=== PATIENT | female | born 1950 | race Caucasian/White ===

== ENCOUNTER 2025-04-22 09:40 | Emergency (ER) | payer MEDICARE, SELFPAY ==
[2025-04-22 09:54] VITALS: BP 132/56; PULSE 84; RESP 20; TEMP 36.9; O2SAT 97
--- OUTSIDE RECORDS SUMMARY | 2025-04-22 10:24 | XMS_ITS | Clinical Summary ---
Author Organization [facility] Address [id number] [place] [address] Care Team Providers Care Sole Cementer Name Role Phone Vanessa Mcclain RN Unavailable Unavailabl Jigar Mcgrath PT Unavailable Unavailab Jw Garay MD Unavailable Kristofer Fairbanks MD Unavailable [phone] Ammy Trejo MD Primary Care Provide r Allergies Active Allergy Reactions Criticality Noted Date Comments Etodolac Dizziness Low Sulfa (Sulfonamide Antibiotics) Unknown Sulfanilamide Medications aspirin (ECOTRIN LOW STRENGTH) 81 mg tablet take 1 tablet by oral route every day 30 5 6 Active sosbssrx-lcf-U H-eagmlyw-upxm in (CENTRUM SILVER) 0.4-300-250 mg-mcg-mcg tablet one po daily. 0 0 6 Active ascorbic acid, vitamin C, 250 mg tablet,chewabl eIndications:V itamin C Deficiency Take 1 tablet by mouth 2 (two) times a day Active gabapentin (NEURONTIN) 300 mg capsule Take 1 capsule (300 mg total) by mouth 3 (three) times a day 270 capsule 3 3 Active furosemide (LASIX) 40 mg tablet Take 1 tablet (40 mg total) by mouth daily as needed (swelling) 90 tablet 1 3 Active albuterol HFA (PROVENTIL HFA,VENTOLIN HFA,PROAIR HFA) 90 mcg/actuation inhaler Inhale 2 puffs every 6 (six) hours as needed for wheezing 1 each 4 Active fluticasone propion-salmet Marcus (ADVAIR DISKUS) 500-50 mcg/dose diskus inhaler Inhale 1 puff 2 (two) times a day Rinse mouth with water after use. Do not swallow. 1 each 4 Active potassium chloride ER 10 mEq CR tablet Take 1 tablet by mouth once daily with food 100 tablet 4 Active losartan (COZAAR) 100 mg tablet Take 1 tablet by mouth once daily 90 tablet 3 4 Active rosuvastatin (CRESTOR) 10 mg tablet TAKE 1 TABLET BY MOUTH ONCE DAILY AT NIGHT 90 tablet 3 4 Active amLODIPine (NORVASC) 5 mg tablet Take 1 tablet by mouth once daily 90 tablet 1 4 Active blood glucose diagnostic (Mobentouch Ultra Test) stripIndicatio ns:Uncontrolle d type 2 diabetes mellitus with hyperglycemia, with long-term current use of insulin (HCC) USE STRIP TO CHECK GLUCOSE three TIMES DAILY. E11.65 300 each 3 5 Active pen needle, diabetic 32 gauge x 5/32 needle Use to inject insulin up to 4times/day.e11.65 400 each 11 5 Active insulin lispro (HumaLOG, ADMELOG) 100 unit/mL pen for injectionIndic ations:type 2 diabetes mellitus 71 - 150 NO CORRECTIONAL INSULIN NEEDED, 151 - 170=2 UNITS, 171 - 185=3 UNITS, 186 - 200=4 UNITS, 201 - 215=5 UNITS, 216 - 230=6 UNITS, 231 - 245=7 UNITS, 246 - 260=8 UNITS, 261 - 275=9 UNITS, 276 - 290=10 UNITS, 291 - 300=11 UNITS, 300-315=12 UNITS, 316-331=13 units, 331-346=14 units. Greater than 346= 15 units. E11.65 Total daily dose- 45 units. 45 mL [address] (VOLTAREN) 75 mg EC tablet Take 1 tablet by mouth twice daily as needed for pain 180 tablet 5 Active levothyroxine (SYNTHROID) 125 mcg tablet TAKE ONE TABLET BY MOUTH BAR ASSISTANT BEFORE BREAKFAST 6 DAYS A WEEK. HOLD LEVOTHYROXINE ON TUESDAY. 90 tablet 3 5 Active zolpidem (AMBIEN) 5 mg tablet TAKE 1 TABLET BY MOUTH NIGHTLY NEEDED FOR SLEEP 30 tablet 5 Active Active Problems Problem Noted Date Diagnosed Date Memory change 03/22/2024 Assessment & Plan (03/22/2024 2:59 PM CDT): New concern SLUMS showed mild cognitive decline Will refer to neurology Abnormal stress test 01/16/2024 STAPLES (dyspnea on exertion) 01/16/2024 Cataract 11/30/2023 Assessment & Plan (11/30/2023 12:36 PM CDT): Going for cataract surgery Sore throat 11/14/2023 Assessment & Plan (11/14/2023 2:03 PM CDT): New concern Not at goal Covid flu and rsv negative Recommend fluids, rest, humidification if needed. She was instructed to call back if symptoms do not improved in a week, or if worsening ones arise. Education provided. F/u in 2 weeks Pre-operative clearance 11/14/2023 Assessment & Plan (11/30/2023 12:35 PM CDT): She understands that no procedure is risk-free but accepts those as discussed during OV and wishes to proceed. She was instructed to contact us if any new symptoms or problems arise between now and surgery date. According to the RCRI, the patient's number of risk factors stratifies patient to class II, which carries a 6% risk of major cardiovascular complications Labs and chest xray reviewed She is medically optimized for surgery as long as she is cleared by cardiology Assessment & Plan (11/14/2023 1:46 PM CDT): She understands that no procedure is risk-free but accepts those as discussed during OV and wishes to proceed. She was instructed to contact us if any new symptoms or problems arise between now and surgery date. 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 Washington- [facility]-patient has seen in the past Continue to monitor Encouraged to practice good sanitary hygiene-wiping front to back at all time, using a janine rinse bottle with warm water after each urination and pat dry, avoid rubbing with the tissue paper, encouraged to use a long-handled sponge or loofah to wash the perineum to help ensure for clean hygiene Stay hydrated-drink plenty of water and fluids like lemonade, cranberry juice or cranberry capsules [id number] to help flush the kidneys and bladder Follow-up as-scheduled with PCP- sooner p.r.n. if no Abscess, suprapubic 09/14/2023 Assessment & Plan (09/14/2023 12:52 PM MANAGER IN[employer]ANKING): Acute problem-this is a new problem this visit Abscess with edges approximated, negative for drainage measuring 1 cm in diameter with erythema to the circumference Encouraged to wash area good with soap and water, rinse well, pat dry Avoid squeezing on the area Warm compress 3 to 4 times a day to the area, if the area opened up and starts draining recommend allowing it to drain out just place a loose dressing over it to void image to clothing Ordered Augmentin 875-125 mg -take 1 tablet b.i.d. x7 days, encouraged to make sure she finishes all antibiotics Ordered referral to general surgeon Dr. Jacobson Continue to monitor Ddx: carbuncle , folliculitis Non-rheumatic aortic stenosis 06/17/2023 Coronary artery disease invo lving [place] coronary artery of [place] heart without angina pectoris 03/04/2023 Assessment & Plan (08/03/2023 7:00 AM MANAGER IN[employer]ANKING): Stable Continue bp control Continue statin asa and following with cardiology Murmur, cardiac 01/04/2023 Assessment & Plan (01/04/2023 10:10 AM CDT): Will refer back to cardiology. Last echo 2015. Has seen Dr. Degroot in the past. Dementia, in, senility, without behavioral distu rbance 12/25/2020 Assessment & Plan (07/18/2023 8:13 AM MANAGER IN[employer]ANKING): Concerned about memory. She is at borderline with slums score. Does not want to take medication at this time. Discussed risks/benefits of medication. Assessment & Plan (12/25/2020 3:12 PM CDT): Discussed results of slums exam. Discussed medications. Stressed that it may not improve memory but can help slow down progression of loss. Will start Aricept and Namenda. I also discussed that we had started nortriptyline for difficulty sleeping. She is doing well with this and getting 4-5 hours of sleep and this is an improvement for her. However since she is starting to new medications with doses at bedtime I told her to pullback from the nortriptyline for while and see how she does with sleep on just the new medications. Patient voiced understanding. She really has follow-up scheduled in February and will check in with her at that time. She may call in the interim if any problems or concerns Adjustment insomnia 02/04/2020 Assessment & Plan (07/09/2022 9:27 AM CDT): Stable. Currently on ambien 5mg at bedtime. Assessment & Plan (02/04/2020 7:38 AM CDT): Will discontinue lorazepam. Discussed importance of discontinuing lorazepam. Will try temazepam at bedtime. F/u 1 month Nevus of multiple sites 05/15/2019 Eczematous dermatitis of left lower eyelid 05/15 Assessment & Plan (07/13/2023 2:18 PM MANAGER [employer]ANKING): Has been chronic. Recommended going to see Dermatology in [place]. No decision was made between her and her daughter at this time. They can call for referral at any time Assessment & Plan (12/13/2019 9:03 AM CDT): I had given her poly/dex ointment but I explained I didn't want her to continue using the ointment with a steroid in it under her eye indefinitely. Will try switching to neomycin/polymixin ointment. She can continue the otc lotion as suggested by dermatology as well. She has f/u scheduled in March Assessment & Plan (05/15/2019 3:48 PM CDT): I told her she could use some gvui-qqj-jiugfxk 1% hydrocortisone lotion commonly known as cortisone 10 to under her eye once daily for up to 2 weeks. Cautioned not to use for over 2 weeks and not heavily to do thinness of skin. And patient voiced understanding. Alternatively I gave her poly dex eye ointment that she could use little closer right underneath of her eyelid for 2 weeks as well. She can continue to use the [id number]-pqm-yvtrquf aquaphor. Vitamin D deficiency 02/05/2019 Assessment & Plan (07/07/2022 4:22 PM CDT): Improved. Continue to take vitamin D Assessment & Plan (11/19/2021 7:31 PM CDT): History of vitamin-D deficiency will recheck vitamin-D Primary osteoarthritis of right hip 12/12/2018 Physical deconditioning 12/04/2018 Class 3 severe obesity due t o excess calories with serious comorbidity and body mass index (BMI) of 40.0 to 44.9 in adult 12/01/2018 Assessment & Plan (12/22/2023 4:39 PM CDT): This is a chronic condition which continues Five lbs. Weight gain since last office visit Encouraged healthy eating which includes a low carb diet. Avoiding processed foods, sweets and fried foods. Encouraged 30 minutes of walking at least 5 days per week Assessment & Plan (09/21/2023 1:48 PM MANAGER [employer]ING): This is a chronic problem that persist 3 lb weight gain since last office visit States she has not getting out as much since the weather is cold She does walk after she eats lunch in her living facility Encouraged walking after each meal to increase activity Assessment & Plan (07/18/2023 8:10 AM MANAGER [employer]ANKING): BMI Follow-up includes: nutrition counseling. Assessment & Plan (01/04/2023 10:23 AM CDT): BMI Follow-up includes: exercise counseling. Assessment & Plan (07/09/2022 9:03 AM CDT): BMI Follow-up includes: exercise counseling. Assessment & Plan (07/02/2021 3:39 PM CDT): BMI Follow-up includes: nutrition counseling and exercise counseling. Assessment & Plan (11/26/2020 2:46 PM CDT): BMI Follow-up includes: exercise counseling. Assessment & Plan (11/06/2019 2:23 PM MANAGER [employer]ANKING): Unchanged. Encouraged patient to decrease weight, increase daily exercise, and modify diet. Assessment & Plan (02/08/2019 1:51 PM CDT): BMI Follow-up includes: nutrition counseling. DDD (degenerative disc disease), lumbar 05/24/20 Assessment & Plan (07/18/2023 8:12 AM MANAGER [employer]ANKING): Continues on gabapentin 300mg tid for back pain. Condition is stable at this time. Also has nsaid, diclofenac bid prn for pain. Spinal stenosis of lumbar re gion with neurogenic claudication L2-3 level 05/24/2018 History of diverticulitis 04/21/2018 Assessment & Plan (04/21/2018 6:11 PM CDT): Resolved with treatment. She continues to have fatigue. We will recheck labs. However I told her that it she may just be taking time to heal and recover from illness. I think she is also getting a a cold which could also be wearing her down. Encouraged rest and fluids this week. Low back pain radiating to right leg-L5/S1 distr ibution 12/14/2017 Assessment & Plan (08/03/2023 7:03 AM MANAGER [employer]ING): I explained that I do not prescribe narcotics which includes tramadol. She will need to get in with pain management or find a new provider who does prescribe narcotics. She verbalized understanding. She was given Dr. Parrish's name, Dr. Chopra or pain management. Assessment & Plan (11/09/2022 2:14 PM MANAGER [employer]ANKING): Pt asked if I could prescribe something stronger than tramadol. I do not feel comfortable prescribing anything stronger on a regular basis and do not manage chronic pain. Referral given to pain management. Assessment & Plan (11/19/2021 7:29 PM CDT): Saw pain management in the past. At one time accidentally overdosed on pain medication. Currently on gabapentin. She is interested in physical therapy. Will refer to PT . Pt still drives. She can drive to [facility] in [place]. Assessment & Plan (11/26/2020 2:48 PM CDT): Has seen pain management in the past but does not want another injection. Takes diclofenac b.i.d.. Complaining of low back pain sometimes radiates down into right leg. Will refer her back to pain management. Previous pain management doctor retired so will refer her to Dr. Cobos Assessment & Plan (02/14/2018 11:25 AM CDT): toradol 60mg IM given in office. Restart diclofenac 50mg tid prn, to start this evening. zanaflex 4mg tid prn. Discussed use and it may make her tired. May use mostly at bedtime. Tramadol for acute pain. She had an x-ray ordered previously. She will obtain lumbar spine films now and then f/u pending results. Consider MRI or pain management. Assessment & Plan (12/14/2017 2:29 PM CDT): She had an x-ray in 2013. It did show DDD. We discussed exercise and movement during the day. We discussed sitting positions. I asked her to go to physical therapy. She reluctantly agreed. Referred to physical therapy in [place], which is closer to her. We will get repeat x-ray. Consider MRI. Post-menopausal atrophic vaginitis 12/14/2017 Assessment & Plan (12/14/2017 3:19 PM CDT): Urine dip was negative. She's having burning at end of urination. I am going to try treating her for a post menopausal atrophic vaginitis. She actually has a f/u with gynecology scheduled in the next month, which will be a good recheck Encounter for wellness examination 06/27/2017 Assessment & Plan (08/03/2023 9:54 AM MANAGER [employer]ANKING): Ordered CBC, cmp, lipid Colonoscopy up to date Mammo scheduled Zoster-states that she had it F/u in 1 year for annual Assessment & Plan (07/13/2023 10:59 AM MANAGER [employer]ANKING): -Recommended: Healthy, prudent diet. Avoiding junk food/fast food. -30 minutes of exercise most days of the week. Increase to 45 minutes for weight loss. -Mammogram every 1 year, starting at age 40; regular self breast & skin examinations (1 week after cycle begins) -Regular gynecologic examinations with pelvic exam & PAP smear every 3-5 years if you have not had a hysterectomy (does not have a airplane pilot supervisor), -Periodic blood pressure monitoring, & bone-density testing (starting at age 65 in average-risk person) -Colonoscopy at age 45 and further colonoscopys pending GI recs. , alternative cologuard Up to date -Influenza vaccine every year up to date and documented Up to date, see immunization history -F/u in 1 year for Annual PE or sooner if needed -Labs as ordered Assessment & Plan (07/09/2022 9:29 AM CDT): Patient Counseling: --Nutrition: Stressed importance of moderation in sodium/caffeine intake, saturated fat and cholesterol, caloric balance, sufficient intake of fresh fruits, vegetables, --Exercise: Stressed the importance of regular exercise. --Continue routine dental and vision visits --Immunizations reviewed and offered --Discussed benefits of screening colonoscopy.- starting at age 45-50-utd --females- mammograms offered if applicable/ needed., -utd -Routine labs/ screenings ordered Assessment & Plan (07/02/2021 3:41 PM CDT): -Recommended: Healthy diet. Avoiding junk food/fast food. -30 minutes of exercise most days of the week. Increase to 45 minutes for weight loss. Immunizations: Up to date Recommend zoster lose weight, follow low fat diet, have labs drawn prior to ROV, call if any problems Follow-up in 6 months. 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 Lab Results Component Value Date TSH 1.01 01/06/2023 TSH 5.63 (H) 10/26/2022 TSH 6.22 (H) 08/16/2022 Continue Levothryoxine 125 mcg po daily in am Discussed the importance of taking Levothryoxine on a empty stomach, which means one hour before eating or two hours after eating. Discussed food in the stomach will interfere with absorption of Levothyroxine. Discussed Calcium, antacids and iron supplements will interfere with the absorption of Levothyroxine, encouraged to take these at a different time of the day. Assessment & Plan (09/21/2023 1:46 PM MANAGER [employer]ANKING): This is a chronic condition which is at goal of TSH between 0.3 to 4.2 mclUnits/ml Personally reviewed lab. Lab Results Component Value Date TSH 1.01/06/2023 TSH 5.63 (H) 10/26/2022 TSH 6.22 (H) 08/16/2022 Continue Euthyrox 125 mcg po daily in am Discussed the importance of taking Euthryox on a empty stomach, which means one hour before eating or two hours after eating. Discussed food in the stomach will interfere with absorption of Levothyroxine. Discussed Calcium, antacids and iron supplements will interfere with the absorption of Levothyroxine, encouraged to take these at a different time of the day. Assessment & Plan (08/03/2023 7:01 AM MANAGER [employer]ANKING): Lab Results Component Value Date TSH 1.01/06/2023 Continue following with endo for management Assessment & Plan (06/16/2023 12:48 PM CDT): This is a chronic condition which is not at goal of TSH between 0.3 to 4.2 mclUnits/ml Personally reviewed lab. Lab Results Component Value Date TSH 1.01 01/06/2023 TSH 5.63 (H) 10/26/2022 TSH 6.22 (H) 08/16/2022 Continue Levothryoxine 125 mcg po daily in am Discussed the importance of taking Levothryoxine on a empty stomach, which means one hour before eating or two hours after eating. Discussed food in the stomach will interfere with absorption of Levothyroxine. Discussed Calcium, antacids and iron supplements will interfere with the absorption of Levothyroxine, encouraged to take these at a different time of the day. Assessment & Plan (03/16/2023 2:41 PM CDT): This is a chronic condition which is at goal of TSH between 0.3 to 4.2 mclUnits/ml Personally reviewed lab. Lab Results Component Value Date TSH 1.01 01/06/2023 TSH 5.63 (H) 10/26/2022 TSH 6.22 (H) 08/16/2022 Continue Euthyrox 125 mcg po daily in am Discussed the importance of taking Levothryoxine on a empty stomach, which means one hour before eating or two hours after eating. Discussed food in the stomach will interfere with absorption of Levothyroxine. Discussed Calcium, antacids and iron supplements will interfere with the absorption of Levothyroxine, encouraged to take these at a different time of the day. Assessment & Plan (01/04/2023 10:21 AM CDT): Check TSH today. Continue current medication. . Please take levothyroxine on an empty stomach. This means 1 hour before eating or 2 hours after eating. Food in the stomach will interfere with absorption of the levothyroxine. Calcium, antacids and iron supplements will also interfere with the absorption of levothyroxine. Please take these at a different time of the day Managed by Kim Maxwell. She is due for labs. Order given for [facility] Assessment & Plan (11/03/2022 11:08 AM MANAGER [employer]ANKING): This is a chronic condition which is not at goal. Personally reviewed lab. Lab Results Component Value Date TSH 5.63 (H) 10/26/2022 TSH 6.22 (H) 08/16/2022 TSH 0.29 (L) 04/19/2022 Goal is for TSH to be between 0.3 to 4.2 mclUnits/ml increase Levothryoxine 125 mcg po daily in am- skip the Tuesday dose. Discussed the importance of taking Levothryoxine on a empty stomach, which means one hour before eating or two hours after eating. Discussed food in the stomach will interfere with absorption of Levothyroxine. Discussed Calcium, antacids and iron supplements will interfere with the absorption of Levothyroxine, encouraged to take these at a different time of the day. Repeat TSH, T4 in 8 weeks. Assessment & Plan (08/03/2022 2:33 PM MANAGER [employer]ANKING): This is a chronic condition which is not at goal. Personally reviewed lab. Lab Results Component Value Date TSH 0.29 (L) 04/19/2022 TSH 0.13 (L) 12/30/2021 TSH 0.06 (L) 07/13/2021 Goal is for TSH to be between 0.3 to 4.2 mclUnits/ml decrease Levothryoxine 100 mcg po daily in am Discussed the importance of taking Levothryoxine on a empty stomach, which means one hour before eating or two hours after eating. Discussed food in the stomach will interfere with absorption of Levothyroxine. Discussed Calcium, antacids and iron supplements will interfere with the absorption of Levothyroxine, encouraged to take these at a different time of the day. Repeat TSH, T4 Assessment & Plan (07/09/2022 9:03 AM CDT): Stable. Managed by endocrinology. Assessment & Plan (04/28/2022 1:11 PM CDT): This is a chronic condition which is not at goal. Personally reviewed lab. Lab Results Component Value Date TSH 0.29 (L) 04/19/2022 TSH 0.13 (L) 12/30/2021 TSH 0.06 (L) 07/13/2021 Goal is for TSH to be between 0.3 to 4.2 mclUnits/ml decrease Levothryoxine 100 mcg po daily in am Discussed the importance of taking Levothryoxine on a empty stomach, which means one hour before eating or two hours after eating. Discussed food in the stomach will interfere with absorption of Levothyroxine. Discussed Calcium, antacids and iron supplements will interfere with the absorption of Levothyroxine, encouraged to take these at a different time of the day. Repeat TSH, T4 in 6 weeks, Assessment & Plan (11/19/2021 7:31 PM CDT): Check TSH today. Continue current medication. Assessment & Plan (07/02/2021 3:39 PM CDT): Due for repeat TSH. Order given Assessment & Plan (04/26/2021 6:14 PM CDT): Check TSH today. Continue current medication. Assessment & Plan (12/25/2020 3:09 PM CDT): Lab orders for [facility] Assessment & Plan (11/26/2020 2:43 PM CDT): Check TSH today. Continue current medication. Assessment & Plan (09/11/2019 2:05 PM MANAGER [employer]ANKING): Check TSH today. Continue current medication. Assessment & Plan (05/15/2019 3:44 PM CDT): TSH in February was normal. However due to knee symptoms will recheck her TSH. Assessment & Plan (02/08/2019 1:50 PM CDT): Continue current medications. Order for repeat labs. Assessment & Plan (10/24/2018 1:31 PM MANAGER IN[employer]MENT [employer]ANKING): We decreased her levothyroxine last April. She is overdue for repeat TSH. Orders are in [place]. She will get those drawn today through [facility]. Assessment & Plan (04/21/2018 6:14 PM CDT): Due for repeat TSH. Assessment & Plan (12/14/2017 2:21 PM CDT): Due to recheck TSH today. Continue current medication. Will call with results. Assessment & Plan (06/29/2017 9:55 PM CDT): Continue current medictions. Due for lab work. Type 2 diabetes mellitus wit h hyperglycemia, with long-term current use of insulin 01/19/2014 Overview (12/11/2016): DMII WO CMP UNCNTRLD Assessment & Plan (03/22/2024 8:30 AM CDT): Hga1c goal less than 8%. Managed by endocrinology. Condition is stable. Assessment & Plan (12/22/2023 4:37 PM CDT): This is a chronic condition which is at goal . Goal is less than 7-8%. Personally reviewed most recent A1c - Lab Results Component Value Date HGBA1C 8.0 12/22/2023 Personally reviewed POC blood sugar- not at goal of 80-180 Lab Results Component Value Date POCGLU 306 12/22/2023 Medication -continue Novolog 5-15 units 15 minutes prior to meals and at bedtime. Monitor blood sugar 5 times a day. Encouraged annual eye exam. She has needing a cataract removal Monofilament foot exam completed. Loss of protective senses Treated with Gabapentin Personally reviewed CMP eGFR- 69 Kidney function-normal Urine microalbumin/creatinine ratio - at goal. Goal is <30 Continue amlodipine, Lasix, losartan Assessment & Plan (09/21/2023 1:47 PM MANAGER [employer]ING): This is a chronic condition which is at goal of less than 8%. Personally reviewed most recent A1c - Lab Results Component Value Date HGBA1C 7.6 09/21/2023 Personally reviewed POC blood sugar- not at goal 80-180 Lab Results Component Value Date POCGLU 250 09/21/2023 Medication- continue Novolog 5-15 units 15 minutes prior to meals and at bedtime. Monitor blood sugar 3-4 times a day. Encouraged annual eye exam. Monofilament foot exam completed. loss of protective senses. Treated with Gabapentin Personally reviewed CMP eGFR- 91 Kidney function- normal B/P today- at goal of <140/90. continue amlodipine, losartan, furosemide Personally reviewed lipid panel. at Goal of less than 70. Continue rosuvastatin Assessment & Plan (08/03/2023 7:01 AM MANAGER [employer]ING): Hga1c at goal less than 8%. Managed by endocrinology. Condition is stable. Assessment & Plan (07/18/2023 8:10 AM MANAGER [employer]ING): Hga1c at goal less than 8%. Managed by endocrinology. Condition is stable. Assessment & Plan (06/16/2023 12:47 PM CDT): This is a chronic condition which is at goal of less than 8%. Personally reviewed most recent A1c - Lab Results Component Value Date HGBA1C 7.4 06/16/2023 Personally reviewed POC blood sugar- not at goal 80-180 Lab Results Component Value Date POCGLU 222 06/16/2023 Medication- Continue Novolog 5-15 units 15 minutes prior to meals and at bedtime. Discussed trying Ozempic but she is not interested in changing her regimen at this time. Since she is close to goal we will honor her wishes Monitor blood sugar 4-5 times a day. Encouraged annual eye exam. monofilament foot exam completed. loss of protective senses. Personally reviewed CMP eGFR- 91 Kidney function- normal Urine microalbumin/creatinine ratio - at goal <30 treated with losartan, amlodipine B/P today- at goal of <140/90. continue losartan, amlodipine Personally reviewed lipid panel. at Goal of less than 70. Continue rosuvastatin Assessment & Plan (03/16/2023 2:40 PM CDT): This is a chronic condition which is inadequately controlled, not at goal of less than 8%. Personally reviewed most recent A1c - Lab Results Component Value Date HGBA1C 8.3 03/16/2023 Personally reviewed POC blood sugar- not at goal 80-180 Lab Results Component Value Date POCGLU 207 03/16/2023 Medication- continue Novolog 5-15 units 15 minutes prior to meals and at bedtime. Monitor blood sugar 3 times a day. Encouraged annual eye exam. Monofilament foot exam completed. loss of protective senses. Treated with Gabapentin Personally reviewed CMP eGFR- 68 Kidney function- abnormal Urine microalbumin/creatinine ratio - at goal <30 treated with amlodipine, furosemide, losartan B/P today- at goal of <140/90. continue amlodipine, furosemide, losartanACE/ARB Personally reviewed lipid panel. at Goal of less than 70. Continue rosuvastatin Assessment & Plan (01/04/2023 10:26 AM CDT): Worsening. Hemoglobin A1c is not at goal. Managed by endocrinology. Remains on short-acting insulin prior to meals. Refuses long-acting insulin as she is afraid of hypoglycemia. Can not exercise much due to physical disability Assessment & Plan (11/03/2022 11:07 AM MANAGER [employer]): This is a chronic condition which is poorly controlled not at goal of less than 7%. Personally reviewed most recent A1c - not at goal 80-180 Lab Results Component Value Date HGBA1C 8.1 11/03/2022 Personally reviewed POC blood sugar- Lab Results Component Value Date POCGLU 189 11/03/2022 Medication- Continue NovoLog 5-15 units prior to meals Will not take long-acting insulin as she is afraid of hypoglycemia Monitor blood sugar 4-6 times a day. Encouraged annual eye exam. Monofilament foot exam completed. loss of protective senses. Treated with Gabapentin Urine microalbumin/creatinine ratio - at goal <30 treated with amlodipine, furosemide, losartan Personally reviewed CMP GFR- 68 Kidney function- abnormal B/P today- at goal of <140/90. continue amlodipine, furosemide, losartan Personally reviewed lipid panel. Not at Goal of less than 70. Continue rosuvastatin Assessment & Plan (08/03/2022 2:33 PM [employer]): This is a chronic condition which is poorly controlled not at goal of less than 7%. Personally reviewed most recent A1c - Lab Results Component Value Date HGBA1C 8.3 08/03/2022 Personally reviewed POC blood sugar- Lab Results Component Value Date POCGLU 171 08/03/2022 not at goal 80-180 Medication- Continue NovoLog 5-15 units prior to meals Will not take long-acting insulin as she is afraid of hypoglycemia Monitor blood sugar 4-6 times a day. Encouraged annual eye exam. Monofilament foot exam completed. loss of protective senses. Treated with Gabapentin Urine microalbumin/creatinine ratio - at goal <30 treated with amlodipine, furosemide, losartan Personally reviewed CMP GFR- 68 Kidney function- abnormal B/P today- at goal of <140/90. continue amlodipine, furosemide, losartan Personally reviewed lipid panel. Not at Goal of less than 70. Continue rosuvastatin Assessment & Plan (07/09/2022 9:26 AM CDT): Controlled. Managed by endocrinology Assessment & Plan (04/28/2022 1:00 PM CDT): This is a chronic condition which is at goal for her age and health condition. goal is less than 8% Personally reviewed A1c today- 7.8% at goal less than 8% without hypoglycemia. Medication- Continue Novolog 5-15 units prior to meals and at bedtime. Monitor blood sugar 4 times a day. She did not like wearing a sensor. Encouraged annual eye exam. Monofilament foot exam completed, protective senses intact, Treated with Gabapentin Urine microalbumin/creatinine ratio - <30. currently losartan , at goal <30 Personally reviewed labs: BUN-16, creatinine- 0.82 GFR- 68 Kidney function- abnormal B/P today- 136/76 , currently on amlodipine, lasix, losartan. at Goal blood pressure is <140/90 and as close to 120/80 as possible. Personally reviewed LDL - 64, currently on crestor 10 mg daily. At Goal of less than 70 No history of macrovascular disease - [place]. Assessment & Plan (11/19/2021 2:06 PM CDT): This is a chronic condition which is not at goal for her age and health condition. Personally reviewed A1c today- 8.2% at goal less than 8% without hypoglycemia. Medication- Continue Novolog 5-15 units prior to meals and at bedtime. Monitor blood sugar 4 times a day. She did not like wearing a sensor. Encouraged annual eye exam. Monofilament foot exam completed, protective senses intact, Treated with Gabapentin Urine microalbumin/creatinine ratio - <30. currently losartan , at goal <30 Personally reviewed labs: BUN-16, creatinine- 0.82 GFR- 68 Kidney function- abnormal B/P today- 122/60 , currently on amlodipine, lasix, losartan. at Goal blood pressure is <140/90 and as close to 120/80 as possible. Personally reviewed LDL - 64, currently on crestor 10 mg daily. At Goal of less than 70 No history of macrovascular disease - [place]. Assessment & Plan (08/07/2021 3:14 PM [employer]NA[employer]): This is a chronic condition which is worsening and not at goal for her age and health condition. Personally reviewed A1c today-increased to 8.4% at goal less than 8% without hypoglycemia. Medication- Continue Novolog 5-15 units prior to meals and at bedtime. Monitor blood sugar 4 times a day. She did not like wearing a sensor. Encouraged annual eye exam. Monofilament foot exam completed, protective senses intact, Treated with Gabapentin Urine microalbumin/creatinine ratio - <30. currently losartan , at goal <30 Personally reviewed labs: BUN-16, creatinine- 0.82 GFR- 68 Kidney function- abnormal B/P today- 116/64 , currently on amlodipine, lasix, losartan. at Goal blood pressure is <140/90 and as close to 120/80 as possible. Personally reviewed LDL - 64, currently on crestor 10 mg daily. At Goal of less than 70 No history of macrovascular disease - [place]. Assessment & Plan (04/30/2021 2:38 PM CDT): This is a chronic condition which is stable, and at goal for her age and health condition. Personally reviewed A1c today-7.9 at goal less than 8% without hypoglycemia. Medication- Continue Levemir 15 units daily and Novolog 15 units prior to meals Monitor blood sugar 4 times a day. She did not like wearing a sensor. Encouraged annual eye exam. Monofilament foot exam completed, protective senses intact, Treated with Gabapentin Urine microalbumin/creatinine ratio - <30. currently losartan , at goal <30 Personally reviewed labs: BUN-13, creatinine- 0.79 GFR- 68 Kidney function- abnormal B/P today- 138/76 , currently on amlodipine, lasix, losartan. at Goal blood pressure is <140/90 and as close to 120/80 as possible. Personally reviewed LDL - 64, currently on crestor 10 mg daily. At Goal of less than 70 No history of macrovascular disease - [place]. Assessment & Plan (11/26/2020 2:44 PM CDT): Managed by endocrinology. Will obtain microalbumin today. Last hemoglobin A1c was 7.9% Assessment & Plan (11/20/2020 4:04 PM CDT): This is a chronic condition which is stable, and at goal for her age and health condition. Personally reviewed A1c today-7.9, down from 8.1% at goal less than 8% without hypoglycemia. Medication- Continue Levemir 15 units daily and Novolog 15 units prior to meals Monitor blood sugar 4 times a day. See did not like wearing a sensor. Encouraged annual eye exam. last dilated eye exam was 2018. Has not had due to COVID quarantine. Monofilament foot exam completed, protective senses intact, Treated with Gabapentin Urine microalbumin/creatinine ratio - (07/24) Less than 10. currently losartan , at goal <30 Personally reviewed labs: BUN-14, creatinine- 0.98 GFR- 58 Kidney function- abnormal B/P today- 134/72 , currently on amlodipine, lasix, losartan. at Goal blood pressure is <140/90 and as close to 120/80 as possible. Personally reviewed LDL - 67, currently on crestor 10 mg daily. At Goal of less than 70 No history of macrovascular disease - [place]. Assessment & Plan (06/16/2020 12:03 PM CDT): This is a chronic condition which is worsening and not at goal. Labs reviewed. A1c 10.9.2020- 8.1 Medication- Continue Levemir 15 units daily- Encouraged to take long acting insulin Novolog 15 units prior to meals Sample Freestyle Lliia applied for monitoring of nocturnal hypoglycemia Will attempt to obtain for patient Therapeutic CGM is needed for this person with Type 2 Diabetes for the following reasons: The person has diabetes mellitus The person has been using a home blood glucose monitor (BGM) and performing frequent (four or more times a day) BGM testing The person is insulin-treated with multiple daily injections (MDI) of insulin The person's insulin treatment regimen requires frequent adjustment based on the therapeutic CGM testing results In six (6) months prior to ordering the CGM, this person had an in-person visit with the treating practitioner to evaluate their diabetes control and determine that the above criteria are met Every six (6) months following the initial prescription of the CGM, the person has an in-person visit with the treating practitioner to assess adherence to their CGM regimen and diabetes treatment plan. Encouraged annual eye exam, due in August 2020 Monitor blood sugar 4-6 times a day. Last dilated eye exam was at [place] 08/2019 Stage 3 CKD Neuropathy- on gabapentin tid Kidney function eGRF-58, BUN-14, creatinine- 0.98 BP today- 132/70 , currently on Norvasc 5mg, losartan 100mg LDL - 67, currently on rosuvastatin 10 mg daily No history of macrovascular disease - [place]. Encouraged to eat healthy, low carb diet. Assessment & Plan (03/06/2020 2:36 PM CDT): This is a chronic condition which is Stable as per her blood sugars Labs reviewed. A1c was not obtained since this was a Zoom visit Medication- Continue Novolog 8-10 units at meals Monitor blood sugar 4 times a day. last dilated eye exam was [facility], [place]. Monofilament foot exam was not completed at this visit. Takes gabapentin. Urine microalbumin/creatinine ratio - normal 07/24 , Kidney function eGRF-72, BUN- 13, creatinine- 0.82/Stage 3 CKD currently on ARB/losartan LDL - 61-02/09/19, currently on Crestor No history of macrovascular disease - [place]. Assessment & Plan (07/31/2019 8:15 AM MANAGER [employer]): She is going to reschedule with endocrinology. microalbumin in office normal Assessment & Plan (04/21/2018 6:14 PM CDT): Diabetes is improving with treatment. Continue current treatment regimen. Dietary recommendations for ADA diet. Diabetes will be reassessed in 6 months. Assessment & Plan (06/29/2017 9:56 PM CDT): Diabetes is unchanged. Continue current treatment regimen. Reminded to bring in blood sugar diary at next visit. Discussed foot care. Diabetes will be reassessed in 6 months. Hyperlipidemia associated with type 2 diabetes ronald dozier 08/21/2012 Assessment & Plan (09/21/2023 1:47 PM MANAGER [employer]ING): This is a chronic condition which is at goal of LDL less than 70 Continue rosuvastatin Encouraged to eat healthy, include fresh fruits and vegetables daily and avoid eating fried foods more than once per week. Encouraged to take medications as prescribed. Assessment & Plan (08/03/2023 6:59 AM MANAGER [employer]ING): Lipid abnormalities are stable Continue rosuvastatin 10mg daily Assessment & Plan (07/13/2023 2:15 PM MANAGER [employer]ANKING): Lipid abnormalities are stable, reviewed previous lipid levels in [facility]. Pharmacotherapy as ordered. Order for lipid panel was given today to be obtained. Pt voiced understanding of lab drawn and continuation of current medication regimen. Assessment & Plan (06/16/2023 12:49 PM CDT): This is a chronic condition which is at goal of LDL less than 70 Continue rosuvastatin Encouraged to eat healthy, include fresh fruits and vegetables daily and avoid eating fried foods more than once per week. Encouraged to take medications as prescribed. Assessment & Plan (03/16/2023 2:42 PM CDT): This is a chronic condition which is at goal of LDL less than 70 Continue rosuvastatin Encouraged to eat healthy, include fresh fruits and vegetables daily and avoid eating fried foods more than once per week. Encouraged to take medications as prescribed. Assessment & Plan (01/04/2023 10:20 AM CDT): Lipid abnormalities are stable, reviewed previous lipid levels in [facility]. Pharmacotherapy as ordered. Order for lipid panel was given today to be obtained. Pt voiced understanding of lab drawn and continuation of current medication regimen. Assessment & Plan (11/14/2022 8:21 PM CDT): Due for lab work. Order for lipid profile. Assessment & Plan (11/03/2022 11:10 AM MANAGER [employer]ING): This is a chronic condition which is not at goal of LDL less than 70 Continue rosuvastatin Encouraged to eat healthy, include fresh fruits and vegetables daily and avoid eating fried foods more than once per week. Encouraged to take medications as prescribed. Assessment & Plan (08/03/2022 2:34 PM MANAGER [employer]ING): This is a chronic condition which is not at goal of LDL less than 70 Continue rosuvastatin Encouraged to eat healthy, include fresh fruits and vegetables daily and avoid eating fried foods more than once per week. Encouraged to take medications as prescribed. Assessment & Plan (07/07/2022 4:24 PM CDT): Lipid abnormalities are not at goal. Chronic condition. Pharmacotherapy as ordered. Lipids will be reassessed in 6 months. Assessment & Plan (04/28/2022 1:02 PM CDT): This is a chronic condition which is not at goal. Goal is less than 70. Personally reviewed lipid panel. LDL - 94, currently on crestor 10 mg daily. At Goal of less than 70 Encouraged to eat healthy, include fresh fruits and vegetables daily and avoid eating fried foods more than once per week. Encouraged to take medications as prescribed. Assessment & Plan (11/19/2021 7:37 PM CDT): Lipid abnormalities are stable, reviewed previous lipid levels in [facility]. Pharmacotherapy as ordered. Order for lipid panel was given today to be obtained. Pt voiced understanding of lab drawn and continuation of current medication regimen. Assessment & Plan (11/19/2021 2:06 PM CDT): This is a chronic condition which is not at goal. Goal is less than 70. Personally reviewed lipid panel. LDL - 64, currently on crestor 10 mg daily. At Goal of less than 70 Encouraged to eat healthy, include fresh fruits and vegetables daily and avoid eating fried foods more than once per week. Encouraged to take medications as prescribed. Assessment & Plan (04/30/2021 2:40 PM CDT): This is a chronic condition which is not at goal. Goal is less than 70. Personally reviewed lipid panel. LDL - 64, currently on crestor 10 mg daily. At Goal of less than 70 Encouraged to eat healthy, include fresh fruits and vegetables daily and avoid eating fried foods more than once per week. Encouraged to take medications as prescribed. Assessment & Plan (12/25/2020 3:08 PM CDT): Patient was not aware she had lab orders. New orders given to go to [facility]. Assessment & Plan (11/26/2020 2:42 PM CDT): Lipid abnormalities are stable, reviewed previous lipid levels in [facility]. Pharmacotherapy as ordered. Order for lipid panel was given today to be obtained. Pt voiced understanding of lab drawn and continuation of current medication regimen. Assessment & Plan (09/11/2019 2:06 PM MANAGER [employer]ING): Lipid abnormalities are stable. Pharmacotherapy as ordered. Lipids will be reassessed in 6 months. Assessment & Plan (07/31/2019 8:16 AM MANAGER [employer]ING): Lipid abnormalities are stable. Pharmacotherapy as ordered. Lipids will be reassessed in 6 months. Assessment & Plan (02/08/2019 1:52 PM CDT): Lipid abnormalities are improving with treatment. Pharmacotherapy as ordered. Lipids will be reassessed in 6 months. Assessment & Plan (06/13/2018 8:05 PM CDT): Lipid abnormalities are improving with treatment. Pharmacotherapy as ordered. Lipids will be reassessed in 6 months. Assessment & Plan (04/21/2018 6:14 PM CDT): Lipid abnormalities are unchanged. Pharmacotherapy as ordered. Lipids will be reassessed in 6 months She is due for repeat labs. Order was given. Assessment & Plan (12/14/2017 2:22 PM CDT): Lipids stable. - continue crestor Obstructive sleep apnea syndrome 10/06/2010 Sarcoidosis 10/06/2003 Assessment & Plan (08/03/2023 9:46 AM MANAGER [employer]ANKING): Continue following with pulmonary Interested in a spring tester in [place] Assessment & Plan (05/15/2019 3:45 PM CDT): History of sarcoidosis. Needs any referral to pulmonology Hypertension associated with diabetes 05/06/1986 Assessment & Plan (03/22/2024 2:22 PM CDT): Bp in the office today BP Readings from Last 1 Encounters: 03/22/24 122/58 Continue current regimen of amlodipine 5mg daily losartan 100mg daily Recommend DASH diet, heart-healthy lifestyle, exercise. Discussed the risks of hypertension. F/u in 6 months Assessment & Plan (12/22/2023 4:38 PM CDT): This is a chronic condition which is at goal after 5 minutes of rest. Goal is less than 140/90 Personally reviewed labs. Continue amlodipine, Lasix, losartan Encouraged to monitor weight and B/P at home Encouraged to take medications as prescribed. Assessment & Plan (09/21/2023 1:46 PM MANAGER [employer]ING): This is a chronic condition which is at goal of less than 140/90 Personally reviewed labs. Continue amlodipine, losartan, furosemide Encouraged to monitor weight and B/P at home Encouraged to take medications as prescribed. Assessment & Plan (08/03/2023 6:59 AM MANAGER [employer]ING): Bp in the office today BP Readings from Last 1 Encounters: 07/13/23 139/82 Continue current regimen of amlodipine 5mg daily losartan 100mg daily Recommend DASH diet, heart-healthy lifestyle, exercise. Discussed the risks of hypertension. F/u in months Stable/ Improved. Blood pressure is adequately controlled on current medication. We will not make any medication changes today. Will have her follow-up in 6 months for continued monitoring and management Assessment & Plan (07/13/2023 2:13 PM MANAGER [employer]ING): Stable/ Improved. Blood pressure is adequately controlled on current medication. We will not make any medication changes today. Will have her follow-up in 6 months for continued monitoring and management Assessment & Plan (06/16/2023 12:48 PM CDT): This is a chronic condition which is at goal of less than 140/90 Personally reviewed labs. Continue amlodipine, losartan Encouraged to monitor weight and B/P at home Encouraged to take medications as prescribed. Assessment & Plan (03/16/2023 2:41 PM CDT): This is a chronic condition which is at goal of less than 140/90 Personally reviewed labs. Continue amlodipine, furosemide, losartan Encouraged to monitor weight and B/P at home Encouraged to take medications as prescribed. Explained correct way to take blood pressure. - After 5 minutes of sitting calmly with arm supported. Encouraged to void caffeine and excessive alcohol consumption as this will elevate B/P Assessment & Plan (01/04/2023 10:20 AM CDT): Stable/ Improved. Blood pressure is adequately controlled on current medication. We will not make any medication changes today. Will have her follow-up in 6 months for continued monitoring and management Assessment & Plan (11/03/2022 11:10 AM MANAGER [employer]ANKING): This is a chronic condition which is at goal of less than 140/90 Personally reviewed labs. Continue amlodipine, furosemide, losartan Encouraged to void caffeine and excessive alcohol consumption as this will elevate B/P Encouraged to monitor weight and B/P at home Explained correct way to take blood pressure. - After 5 minutes of sitting calmly with arm supported. Encouraged to take medications as prescribed. Assessment & Plan (08/03/2022 2:35 PM MANAGER [employer]ANKING): This is a chronic condition which is at goal of less than 140/90 Personally reviewed labs. Continue amlodipine, furosemide, losartan Encouraged to void caffeine and excessive alcohol consumption as this will elevate B/P Encouraged to monitor weight and B/P at home Explained correct way to take blood pressure. - After 5 minutes of sitting calmly with arm supported. Encouraged to take medications as prescribed. Assessment & Plan (07/09/2022 9:27 AM CDT): Stable/ Improved. Blood pressure is adequately controlled on current medication. We will not make any medication changes today. Will have her follow-up in 6 months for continued monitoring and management Assessment & Plan (04/28/2022 1:01 PM CDT): This is a chronic condition which is at goal Personally reviewed labs. B/P today- 136/76 , currently on amlodipine, lasix, losartan. at Goal blood pressure is <140/90 and as close to 120/80 as possible. Avoid caffeine, caffeine will raise blood pressure and excessive alcohol consumption. Monitor your weight and B/P. Encouraged to take medications as prescribed. Assessment & Plan (11/19/2021 7:31 PM CDT): Stable/ Improved. Blood pressure is adequately controlled on current medication. We will not make any medication changes today. Will have her follow-up in 6 months for continued monitoring and management Assessment & Plan (08/07/2021 3:15 PM MANAGER [employer]ING): This is a chronic condition which is at goal Personally reviewed labs. B/P today- 116/64 , currently on amlodipine, lasix, losartan. at Goal blood pressure is <140/90 and as close to 120/80 as possible. Avoid caffeine, caffeine will raise blood pressure and excessive alcohol consumption. Monitor your weight and B/P. Encouraged to take medications as prescribed. Assessment & Plan (07/02/2021 3:38 PM CDT): Stable/ Improved. Blood pressure is adequately controlled on current medication. We will not make any medication changes today. Will have her follow-up in 6 months for continued monitoring and management Assessment & Plan (04/30/2021 2:38 PM CDT): This is a chronic condition which is at goal Personally reviewed labs. B/P today- 138/76 , currently on amlodipine, lasix, losartan. at Goal blood pressure is <140/90 and as close to 120/80 as possible. Avoid caffeine, caffeine will raise blood pressure and excessive alcohol consumption. Monitor your weight and B/P. Encouraged to take medications as prescribed. Assessment & Plan (04/26/2021 6:14 PM CDT): Stable/ Improved. Blood pressure is adequately controlled on current medication. We will not make any medication changes today. Will have her follow-up in 6 months for continued monitoring and management Assessment & Plan (12/25/2020 3:08 PM CDT): Blood pressure well controlled. New orders for labs to go to [facility] Assessment & Plan (11/26/2020 2:42 PM CDT): Stable/ Improved. Blood pressure is adequately controlled on current medication. We will not make any medication changes today. Will have her follow-up in 6 months for continued monitoring and management Assessment & Plan (12/13/2019 9:13 AM CDT): Continue to monitor blood pressure at home. Continue current medications. F/u March Assessment & Plan (11/06/2019 2:22 PM [employer]): Clinically improved, continue current meds. No medication adjustments. Assessment & Plan (09/11/2019 2:06 PM [employer]): Continue to monitor blood pressure. Recheck TSH. Continue current blood pressure medication. Check BMP today. F/u 6 months Assessment & Plan (07/31/2019 8:15 AM [employer]): Hypertension is improving with treatment. Continue current treatment regimen. Blood pressure will be reassessed at the next regular appointment6 months . Assessment & Plan (02/08/2019 1:52 PM CDT): Hypertension is improving with treatment. Dietary sodium restriction. Continue current medications. Blood pressure will be reassessed at the next regular appointment 6 months. Assessment & Plan (06/13/2018 8:05 PM CDT): Hypertension is improving with treatment. Weight loss. Regular aerobic exercise. Continue current medications. Blood pressure will be reassessed at the next regular appointment. Assessment & Plan (12/14/2017 2:22 PM CDT): Hypertension is improving with treatment. Continue current treatment regimen. Regular aerobic exercise. Blood pressure will be reassessed at the next regular appointment 6 months. Assessment & Plan (06/29/2017 9:54 PM CDT): Hypertension is improving with treatment. Weight loss. Continue current medications. Blood pressure will be reassessed in 4 weeks. Resolved Problems Problem Noted Date Diagnosed Date Resolved Date Facial eczema 07/13/2023 07/13/2023 Left arm cellulitis 03/31/2023 07/13/20 23 Dermatitis of ear canal, left 01/04/2023 07/13/2023 Assessment & Plan (01/04/2023 10:20 AM CDT): Triamcinolone cream given to use sparingly as needed LUQ abdominal pain 11/19/2021 Assessment & Plan (11/19/2021 7:36 PM CDT): Differential includes hernia, large lipoma. Hip pain, acute, right 12/12/201811/26 Disorientation 12/01/2018 02/01/2019 Chronic prescription opiate use 12/01/2018 11/26/2020 Acute cystitis without hematuria 12/01/2018 02/01/2019 Acute renal failure with acu te tubular necrosis superimposed on stage 3 chronic kidney disease 12/01/2018 11/26/2020 Volume depletion 12/01/2018 02/01/2019 Elevated alkaline phosphatase level 10/24/2018 01/04/2023 Lumbar pain with radiation down right leg 09/08/2018 02/01/2019 Assessment & Plan (09/08/2018 4:50 PM [employer]): Will try prednisone. I gave her short-term hydrocodone. I asked her to call her pain management doctor for an appointment. I also referred her to physical therapy. We discussed how prednisone can increase blood sugars and she was aware of this already and will monitor her blood sugars Diverticulitis 06/13/2018 07/25/2019 Assessment & Plan (06/13/2018 8:07 PM CDT): Treat with cipro and flagyl. Call if symptoms do not improve or she develops a fever or nausea/ vomiting. Fatigue 04/19/2018 01/04/2023 Assessment & Plan (11/14/2022 8:21 PM CDT): Pt complains of fatigue, which has been a reoccurring complaint for her. Due for labs. Will recheck iron profile and magnesium. Assessment & Plan (10/24/2018 1:31 PM [employer]): Recheck labs including vitamin D which has been low in the past. Obesity, morbid, BMI 40.0-49.9 12/14/2017 02/08/2019 Assessment & Plan (12/14/2017 2:30 PM CDT): BMI Follow-up includes: exercise counseling. Breast lump on left side at 5 o'clock position 09/15/2017 02/14/2018 Assessment & Plan (09/15/2017 1:13 PM [employer]): Very superficial nodule under breast around 5 o'clock position, 3-4 finger breadths from nipple . She is due for mammogram. Will order mammogram. , diagnostic and ultrasound. Depression with anxiety 06/29/2017 05/0 10/2022 Assessment & Plan (07/07/2022 4:24 PM CDT): Continues to take Citalopram. Condition improving. Assessment & Plan (11/19/2021 7:37 PM CDT): Will try citalopram as ordered. Patient has follow-up in 1 month Assessment & Plan (04/26/2021 6:13 PM CDT): Stopped nortriptyline. Start ambien at bedtime. She has f/u in June Assessment & Plan (11/26/2020 2:41 PM CDT): Has most difficulty at night. Will try nortriptyline 10 mg at bedtime. Will have her follow-up by phone in 1 month for recheck Assessment & Plan (09/11/2020 8:19 AM [employer]): Will restart depression medication. Will start sertraline 50 mg once daily. Patient was agreeable. I will check back in with her in 3-4 weeks. Will consider in- person visit or on-site visit by me. Assessment & Plan (02/04/2020 7:37 AM CDT): Will discontinue lorazepam. Start sertraline 50mg once daily. Discussed risks/benefits and time frame for expected improvement. Will f/u 1 month Assessment & Plan (12/13/2019 9:04 AM CDT): Using lorazepam 1mg at bedtime to help her sleep. Anxiety is up since pandemic. Will continue lorazepam 1mg at bedtime. F/u 3 months Assessment & Plan (09/11/2019 2:08 PM [employer]): Psychological condition is improving with treatment. Continue current treatment regimen. Psychological condition will be reassessed 6 months Will continue lorazepam 1mg at bedtime. Assessment & Plan (07/31/2019 8:16 AM [employer]): Continue prozac 30mg daily Assessment & Plan (09/15/2017 2:18 PM [employer]): Doing okay with Ativan. She is not on any antidepressants right now, but thinks she's doing okay with ativan 1-2 times/day. Will continue that for now. She has plans with her daughters for her birthday coming up. I encouraged her to try to do something fun for her birthday. F/u 3 months for med check. Assessment & Plan (08/02/2017 10:16 AM [employer]): Continue on effexor. Lorazepam for anxiety prn. We discussed medication use and safety. F/u 3 months and as needed. Assessment & Plan (06/29/2017 9:59 PM CDT): Doesn't believe current medication is helping. Will try weaning her off zoloft and trying effexor. F/u 1 month Costochondritis, acute 06/27/201711/26 Assessment & Plan (06/27/2017 10:58 AM CDT): Will try diclofenac for [address] of ibuprofen. Acute respiratory distress 02/26/2015 1 Overview (12/09/2016): Acute respiratory distress Lumbago 01/03/2014 02/01/2019 Diabetes mellitus 05/06/2004 04/30/2021 Overview (12/08/2016): Diabetes mellitus Adiposity 10/06/1975 12/14/2017 Overview (12/09/2016): Obesity Encounters Date Type Department Care Team Description 03/27/2025 9:45 AM CDT Office Visit [facility] Pulmonary at [address] [place] [address] Elias Verduzco MD Sarcoidosis (Primary Dx); Hypercalcemia; LUDWIN (obstructive sleep apnea); Moderate persistent asthma without complication; Class 3 severe obesity due to excess calories without serious comorbidity with body mass index (BMI) of 40.0 to 44.9 in adult; Nonrheumatic aortic valve stenosis 01/23/2025 1:17 PM CDT - 01/23/2025 11:59 PM CDT Hospital Encounter [facility] [address] [place] [address] Screening mammogram, encounter for Discharge Disposition: Discharge to home or self care 01/23/2025 Results Follow-Up [facility] Primary Care at [address] [place] [id number] Ammy Dc MD Screening Mammogram Bilateral W Loco from Last 3 Months Immunizations Immunization Administration Dates Next Due COVID-19 MRNA (MODERNA) .5 M L (50 MCG) VACCINE (12 YEARS AND UP) 06/16/2023 Influenza, Quad, Adjuvantate d, Intramuscular 06/02/2022,06/10/2021 Influenza, Quadrivalent, Hig h Dose, Preservative Free, Intrr 06/16/2023 Influenza, Quadrivalent, Spl it, Intramuscular 09/24/2015 Influenza, Trivalent, High D ose, Split, Preservative Free, Intramuscular 07/06/2019,06/13/2018,06/27/2017,06/08 Influenza, Unspecified 06/04/2021,2020(Deferred: Patient Refused) Moderna SARS-CoV-2 Monovalen t Vaccination (12+ YRS) 10/29/2020,10/01/2020 Pneumococcal Conjugate PCV 13 11/19/2015, 016 Pneumococcal Polysaccharide PPV23 12/20/2014,,11/03/2010 Tdap 10/24/2015 Surgical History Surgery Date Site/Laterality Comments SECTION x 2 section CHOLECYSTECTOMY 09/05/1971 - 09/04/1972 Cholecystectomy CARPAL TUNNEL RELEASE Carpal tunnel release SHOULDER SURGERY 09/05/1993 - 09/04/1994 MENISCUS SURGERY ROTATOR CUFF REPAIR HERNIA REPAIR FRACTURE SURGERY left leg CARDIAC STENT PLACEMENT TOTAL ABDOMINAL HYSTERECTOMY W/ BILATERAL SALPINGOOPHORECTOMY 09/05/1984 - 09/04/1985 Hysterectomy, total abdominal, BSO Medical History Medical History Date Comments Disorder of thyroid Thyroid dise ase Type 2 diabetes mellitus Diabete s type 2 Gastroesophageal reflux disease GERD Hypothyroidism Hypothyroidism Sarcoidosis sarcoidosis Inflammatory bowel disease Infla mmatory bowel disease Hyperlipidemia Hyperlipidemia Arthritis Arthritis Depression Depression Chronic coronary artery disease Coronary artery disease Neuropathy Neuropathy; Comm ents: TWM 01/22/2016 - Restless leg Sleep apnea Fibrocystic breast Hypertension treated by pcp Diabetes mellitus (HCC) 05/06/2004 Diabetes mellitus Elevated alkaline phosphatase level 10/24/2018 Abnormal stress test STAPLES (dyspnea on exertion) Urinary tract infection Obesity Family History Medical History Relation Name Comments Heart attack Brother 4 Myocardial infa rction; Cause of : Myocardial infarction Hypertension Brother 5 Hypertension; Arthritis Brother 6 Arthritis; Parkinsonism Daughter COPD Father Heart disease Father Heart disease; Other Father low blood press ure; /Heart & lungs; Cause of : Heart & lungs Stroke Father Stroke; Breast cancer Father's Sister 1 carmina Breast cancer Father's Sister 2 chika Breast cancer Father's Sister 3 arthenia Breast cancer Father's Sister 4 jose antonio Depression Mother Depression; Heart disease Mother Heart disease; Hypertension Mother Hypertension; / Hypertension; Other Mother Heart; Cause of : Heart Stroke Mother Stroke; /Stroke ; Diabetes type II Other 1 Family hist ory of Diabetes -Type 2; Thyroid disease Other 2 Family histo ry of Thyroid disorder; Ovarian cancer Neg Hx Thyroid cancer Neg Hx Relation Name Status Comments Brother 1 (Age 53) Brother 2 Alive Brother 3 Alive Brother 4 Brother 5 Brother 6 Daughter Father (Age 72) Father's Sister 1 carmina Father's Sister 2 chika Father's Sister 3 arthenia Father's Sister 4 jose antonio Mother Other 1 Other 2 Social History Tobacco Use Types Packs/Day Years Used Date Smoking Tobacco: Never Passive Smoke Exposure: Past Smokeless Tobacco: Never Tobacco Cessation:Counseling Given: Not Answered Alcohol Use Standard Drinks/Week Comments No 0 (1 standard drink = 0.6 oz pur e alcohol) AUDIT-C Answer Date Recorded Q1: How often do you have a drink containing alcohol? Never 03/27/2025 Q2: How many drinks containi ng alcohol do you have on a typical day when you are drinking? Patient does not drink Frequency of Binge Drinking Not on file 03/06 PHQ-2 Answer Date Recorded PHQ-2 Total Score (If total score is 3 or more points, staff should administer the PHQ-9) 0 03/22/2024 Personal Safety Answer Date Recorded Have you ever been in or are you currently in a harmful physical or emotional relationship or is someone making you feel afraid or unsafe? Denies 05/01/2024 Comments No Sex and Gender Information Value Date Recorded Sex Assigned at Not on file Legal Sex Female 4:04 PM [employer] Gender Identity Not on file Sexual Orientation Not on file Obstetrics History Para Term AB IAB SAB Ectopic Multiple Livin g Live Births 4 2 2 Date Outcome GA Total Labor Labor/2nd/3rd Weight Sex Type Anes PTL Verónica A1 A5 Name Clin Term Term Last Filed Vital Signs Vital Sign Reading Time Taken Comments Blood Pressure 112/80 03/27/2025 9:52 AM CDT Pulse 84 03/27/2025 9:52 AM CDT Temperature 36.4 C (97.6 F) 03/27/2025 9:52 AM CDT Respiratory Rate 18 03/27/2025 9:52 AM CDT Oxygen Saturation 95% 03/27/2025 9:52 AM CDT Inhaled Oxygen Concentration - - Weight 102.7 kg (226 lb 6.4 oz) 03/27/2025 9:52 AM CDT Height 154.9 cm (5' 1) 03/27/2025 9:52 AM CDT Body Mass Index 42.78 03/27/2025 9:52 AM CDT Plan of Treatment Health Maintenance Due Date Last Done Comments Hepatitis B Screening 1966 Zoster Vaccine (1 of 2) 1998 Osteoporosis Screening-Bone Density Scan 03/24/2024 03/24/2022, 10/01/2019, 04/15/2016, Additional history exists Covid-19 Vaccine (2023-2 5 season) 2024 06/16/2023, 01/25/2023, 06/02/2022, Additional history exists Well Visit 65+ 08/03/2024 08/03/2023, 10/2021, 07/02/2021 Foot Exam 12/21/2024 12/22/2023, 09/05, 06/16/2023, Additional history exists Dilated Eye Exam 01/26/2025 01/26/2023, , 12/15/2020, Additional history exists Depression Screening 03/22/2025 03/22/2024, 11/30/2023, 11/14/2023, Additional history exists Fall Risk Assessment 03/22/2025 03/22/2024, 01/25/2024, 11/30/2023, Additional history exists Influenza Vaccine (#1) 2025 , 06/02/2022, 06/10/2021, Additional history exists Hemoglobin A1C 06/21/2025 12/20/2024, 12/04, 09/21/2023, Additional history exists DTaP/Tdap/Td Vaccine (2 - Td or Tdap) 10/24/2025 10/24/2015 Albumin Creatinine Ratio, Urine 12/20/2025 12/20/2024, 01/18/2024, 01/06/2023, Additional history exists Lipid Panel 12/20/2025 12/20/2024, 01/03, 01/13/2024, Additional history exists eGFR 12/20/2025 12/20/2024, 04/06, 01/18/2024, Additional history exists Colon Cancer Screening-CT Colonography Discontinued 05/06/2015, 05/06/2015, 05/06/2015, Additional history exists Colon Cancer Screening-Colonoscopy Discontinued 05/06/2015, 05/06/2015, 05/06/2015, Additional history exists Colon Cancer Screening-DNA Stool Discontinued 05/06/2015, 05/06/2015, 05/06/2015, Additional history exists Colon Cancer Screening-FIT Discontinued 05/06, 05/06/2015, 05/06/2015, Additional history exists Colon Cancer Screening-FOBT Discontinued 09/2014, 05/06/2015, 05/06/2015, Additional history exists Colon Cancer Screening-Sigmoidoscopy Discontinued 05/06/2015, 05/06/2015, 05/06/2015, Additional history exists Colorectal Cancer Screening Discontinued Pneumococcal vaccine 65+ Completed 016, 10/24/2015, 12/20/2014, Additional history exists Hepatitis C Screening Completed 07/21/2017 Breast Cancer Screening-Mammogram Discontinued 01/23/2025, 08/17/2023, 03/24/2022, Additional history exists Goals Goal Patient Goal Type Associated Problems Recent Progress Patient-Stated? Author [facility]al [facility] Worsening(05/2019 2:12 PM [employer]) Vanessa Vigil, RN Note: Pt would like to be able to complete ADLs and walk with minimal pain. Procedures Procedure Name Priority Date/Time Associated Diagnosis Comments SCREENING MAMMOGRAM BILATERAL W LOCO Schedule Routine, Read Routine (OP Routine) 01/23/2025 1:38 PM CDT Screening mammogram, encounter for EGFR Routine 12/20/2024 2:43 PM CDT Type 2 diabetes mellitus with hyperglycemia, with long-term current use of insulin (HCC) Acquired hypothyroidism Hypertension associated with diabetes (HCC) Hyperlipidemia associated with type 2 diabetes mellitus (HCC) LIPID PANEL Routine 12/20/2024 2:43 PM CDT Type 2 diabetes mellitus with hyperglycemia, with long-term current use of insulin (HCC) Acquired hypothyroidism Hypertension associated with diabetes (HCC) Hyperlipidemia associated with type 2 diabetes mellitus (HCC) ALBUMIN CREATININE RATIO, URINE Routine 12/20/2024 2:43 PM CDT Type 2 diabetes mellitus with hyperglycemia, with long-term current use of insulin (HCC) Acquired hypothyroidism Hypertension associated with diabetes (HCC) Hyperlipidemia associated with type 2 diabetes mellitus (HCC) POCT HEMOGLOBIN A1C Routine 12/20/2024 2 :13 PM CDT Type 2 diabetes mellitus with hyperglycemia, with long-term current use of insulin (HCC) DIABETIC EYE EXAM Routine 01/26/2023 DEXA AXIAL SKELETON BONE DENSITY 1 OR MORE SITES Schedule Routine, Read Routine (OP Routine) 03/24/2022 1:43 PM CDT Osteopenia, unspecified location Post-menopausal HM DIABETES FOOT EXAM Routine 09/11/2019 HEPATITIS C ANTIBODY Routine 07/21/2017 9:19 AM [employer] COLONOSCOPY IMAGES 05/06/2015 from Last 3 Months or Most Recently Relevant to Health Maintenance Results * Screening Mammogram Bilateral W Loco (01/23/2025 1:38 PM CDT) Anatomical Region Laterality Modality Breast Bilateral Mammography Impressions 01/23/2025 1:45 PM CDT Bilateral No evidence of malignancy in either breast. OVERALL BI-RADS FINAL ASSESSMENT: 1 - Negative RECOMMENDATION: Recommend bilateral annual screening mammography. Narrative 01/23/2025 1:45 PM CDT EXAMINATION: Screening Mammogram Bilateral W Loco: 01/23/2025 COMPARISON: Relevant prior studies available at the time of interpretation were reviewed. TECHNIQUE: Mammography was performed with 2D and digital breast tomosynthesis (DBT) images. CAD was utilized. BREAST PARENCHYMAL COMPOSITION: The breasts are almost entirely fatty. FINDINGS: Bilateral There is no suspicious mass, calcification, or architectural distortion in either breast. us Self Screening Mammogram IMG MAMMO PROCEDURES Fi nal Result * eGFR (12/20/2024 2:43 PM CDT) eGFR 73 >=60 mL/min/1. 73 m2 Comment: Interpretive Data Reference Interval Normal >/= 90 mL/min/1.73m2 Mildly decreased* 60 - 89 mL/min/1.73m2 Mildly to moderately decreased 45 - 59 mL/min/1.73m2 Moderately to severely decreased 30 - 44 mL/min/1.73m2 Severely decreased 15 - 29 mL/min/1.73m2 Kidney Failure < 15 mL/min/1.73m2 *Relative to young adult level Estimated glomerular filtration rate is determined by the 2020 CKD-EPI equation recommended by the National Kidney Foundation (A Unifying Approach to GFR Estimation: Recommendations of the NKF-ASK Task Force on Reassessing the Inclusion of Race in Diagnosing Kidney Disease, JASN 2020). The CKD-EPI equation should not be used for patients with unstable renal function and has not been validated in children and those over 70. Current interpretive data was last reviewed 2021. Testing performed by: [facility], [address] [place] [address]., [address] Blood 12/20/2024 2:43 PM CDT 12/20/2024 9:23 PM CDT Kim Maxwell NP LAB BLOOD ORDERABLES Final Resu lt [facility] [address] Department [place] [address] * Albumin Creatinine Ratio, Urine (12/20/2024 2:43 PM CDT) Albumin Ur <12.0 mg/L Comment: Interpretive Data No reference range established. Current interpretive data was last revised 2019. Testing performed by: [address] [address] Creatinine Ur 103.4 mg/dL DEE[facility]KA AGGARWAL Comment: Interpretive Data No reference range established. Current interpretive data was last revised 2019. Testing performed by: [address] [address] Albumin Creatinine Ratio, Ur <12 1 - 29 mg/g [facility]EE[facility]KA AGGARWAL Comment:Testing performed by : [address] [address] Urine 12/20/2024 2:43 PM CDT 12/20/2024 9:18 PM CDT Kim Maxwell NP LAB URINE ORDERABLES Final Resu lt [facility] [id number] [place] [address] Department [place] [address] * (ABNORMAL) Lipid panel (12/20/2024 2:43 PM CDT) Cholesterol 142 30 - 199 mg/dL Comment: Interpretive Data Ages < or = 19 years Acceptable: <170 mg/dL Borderline high: 170-199 mg/dL High: >or= 200 mg/dL Ages > or = 20 years Desirable: <200 mg/dL Borderline high: 200-239 mg/dL High: >or= 240 mg/dL Literature References: 1. Expert Panel on Integrated Guidelines for Cardiovascular Health and Risk Reduction in Children and Adolescents. Pediatrics 2011;128:S213 2. NCEP Expert Panel. Circulation 2004;110:227 Current Interpretive Data was last revised on 2018. Testing performed by: [address] [address] Triglycerides 264(H) <=149 mg/dL [facility]EE[facility]KA AGGARWAL Comment: Interpretive Data Ages < or = 9 years Acceptable: <75 mg/dL Borderline high: 75-99 mg/dL High: >or= 100 mg/dL Ages 10 to 20 years Acceptable: <90 mg/dL Borderline high: 90-129 mg/dL High: >or= 130 mg/dL Ages > or = 20 years Desirable: <150 mg/dL Borderline high: 150-199 mg/dL High: 200-499 mg/dL Very high: >or= 499 mg/dL Literature References: 1. Expert Panel on Integrated Guidelines for Cardiovascular Health and Risk Reduction in Children and Adolescents. Pediatrics 2011;128:S213 2. NCEP Expert Panel. Circulation 2004;110:227 Current Interpretive Data was last revised on 2018. Testing performed by: [address] [address] HDL 41 >=40 mg/dL [facility]EE[facility] Comment: Interpretive Data Ages < or = 19 years Acceptable: >45 mg/dL Borderline low: 40-45 mg/dL Low: <40 mg/dL Ages > or = 20 years Desirable: >or= 60 mg/dL Low: <40 mg/dL Literature References: 1. Expert Panel on Integrated Guidelines for Cardiovascular Health and Risk Reduction in Children and Adolescents. Pediatrics 2011;128:S213 2. NCEP Expert Panel. Circulation 2004;110:227 Current Interpretive Data was last revised on 2018. Testing performed by: [address] [address] LDL, calculated 59 <=129 mg/dL DEEPIKA AGGARWAL Comment: Interpretive Data Ages < or = 19 years Acceptable: <110 mg/dL Borderline high: 110-129 mg/dL High: >or= 130 mg/dL Ages > or = 20 years Optimal: <100 mg/dL Near optimal: 100-129 mg/dL Borderline high: 130-159 mg/dL High: >160 mg/dL Calculated using the Johnie LDL-C estimating equation. This equation was implemented on 2024. Prior to this date LDL-C was estimated using the Friedewald equation. Literature References: 1. Expert Panel on Integrated Guidelines for Cardiovascular Health and Risk Reduction in Children and Adolescents. Pediatrics 2011;128:S213 2. NCEP Expert Panel. Circulation 2004;110:227 3. Johnie Lester al. KALI Cardiol. 2019January 03;5(5):540-548. doi: [email or web address] Current Interpretive Data was last revised on 2024. Testing performed by: [address] [address] Non-HDL Cholesterol 101 mg/dL [facility]EE[facility]KA Comment: Interpretive Data Ages < or = 19 years Acceptable: <120 mg/dL Borderline high: 120-144 mg/dL High: >145 mg/dL Ages > or = 20 years When triglycerides are >200 mg/dL, Non-HDL cholesterol is a secondary target of therapy with treatment goals that are 30 mg/dL greater than the LDL cholesterol target. Literature References: 1. Expert Panel on Integrated Guidelines for Cardiovascular Health and Risk Reduction in Children and Adolescents. Pediatrics 2011;128:S213 2. NCEP Expert Panel. Circulation 2004;110:227 Current Interpretive Data was last revised on 2018. Testing performed by: [address] [address] Chol/HDL ratio 3 [facility] Comment:Testing performed by : [address] [address] Blood 12/20/2024 2:43 PM CDT 12/20/2024 9:18 PM CDT Narrative DEEPIKA AGGARWAL - 12/20/2024 9:46 PM CDT These lab test should be done fasting. This means do not eat or drink for at least 12 hours prior to getting your blood drawn. Has the patient been fasting for 8 hours or more?->Yes Kim Maxwell NP LAB BLOOD ORDERABLES Final Resu lt [place] [address] [facility] Department of Laboratories [place] [id number] * (ABNORMAL) POCT hemoglobin A1c (12/20/2024 2:13 PM CDT) Hemoglobin A1C, POC 8.2 4.0 - 5.6 % Blood 12/20/2024 2:13 PM CDT Kim Maxwell NP POINT OF CARE TEST ORDERABLES F inal Result * Diabetic Eye Exam (01/26/2023) Result [facility] Historical Provider HEALTH MAINTENANCE Final Result * Dexa Axial Skeleton Bone Density 1 or 2 Site (03/24/2022 1:43 PM CDT) Anatomical Region Laterality Modality Body N/A Other 03/24/2022 9:53 PM CDT Narrative 03/24/2022 9:55 PM CDT EXAM DESCRIPTION: DEXA AXIAL SKELETON BONE DENSITY 1 OR MORE SITES REASON FOR STUDY: 71 y/o year old F with given history of screening. Postmenopausal Termite Treater Helper/Model: SensorLogic SL (S/N [id number]) CLINICAL INFORMATION: Current height: 60 inches Maximum height: 62 inches Weight: 244 pounds Risk factors: Postmenopausal COMPARISON: 10/01/2019, 04/15/2016. FINDINGS: AP LUMBAR SPINE L1-L4: Total BMD is 1.074 g/cm2 T-score is 0.2 Dissimilar scan types or analysis methods precludes assessment for calculating a significant change. LEFT HIP: Total BMD is 0.774 g/cm2 T-score is -1.4 Dissimilar scan types or analysis methods precludes assessment for calculating a significant change. Femoral neck BMD is 0.621 g/cm2 T-score is -2.1 FRAX: 10 year risk for a major osteoporotic fracture is 11 %, 10 year risk for a hip fracture is 2.2 % IMPRESSION: Based on the left femoral neck bone mineral density (T-score -2.1) the patient has low bone mass. REFERENCE: Bone mineral density: Normal (T-score above or = -1.0) Low bone mass (T-score between -1.0 and -2.5) replaces the previously used term osteopenia Osteoporosis (T-score = or below -2.5) Medical evaluation for secondary causes of low bone mineral density may be appropriate. FRAX is a World Health Organization validated fracture risk assessment tool that calculates a person's 10 year probability of a major osteoporosis related fracture and hip fracture. According to the National Osteoporosis Foundation guidelines, postmenopausal women and men age 50 or older with low bone mass and a 10 year probability of a major osteoporosis related fracture = or greater than 20% or a 10 year probability of a hip fracture = or greater than 3% should be considered for treatment. For further information, including treatment recommendations, please refer to the 2013 ISCD Official Positions (http://www.iscd.org) and the NOF's Clinician's Guide to Prevention and Treatment of Osteoporosis (http://www.nof.org/professionals/clinical-guidelines) THIS IS AN ELECTRONICALLY VERIFIED FINAL REPORT 03/24/2022 9:55 PM - Electronically signed by Kristofer Smith M.D. MF: [id number] Report ID: [id number] Reading Location: [place] [address] Procedure Note Kristofer Smith MD - 03/24/2022 EXAM DESCRIPTION: DEXA AXIAL SKELETON BONE DENSITY 1 OR MORE SITES REASON FOR STUDY: 71 y/o year old F with given history ofscreening. Postmenopausal Termite Treater Helper/Model: Gema Touch (S/N [id number]) CLINICAL INFORMATION: Current height: 60 inches Maximum height: 62 inches Weight: 244 pounds Risk factors: Postmenopausal COMPARISON: 10/01/2019, 04/15/2016. FINDINGS: AP LUMBAR SPINE L1-L4: Total BMD is 1.074 g/cm2 T-score is 0.2 Dissimilar scan types or analysis methods precludes assessment forcalculating a significant change. LEFT HIP: Total BMD is 0.774 g/cm2 T-score is -1.4 Dissimilar scan types or analysis methods precludes assessment for calculating a significant change. Femoral neck BMD is 0.621 g/cm2 T-score is -2.1 FRAX: 10 year risk for a major osteoporotic fracture is 11 %, 10 year risk for ahip fracture is 2.2 % IMPRESSION: Based on the left femoral neck bone mineral density (T-score -2.1) the patient has low bone mass. REFERENCE: Bone mineral density: Normal (T-score above or = -1.0) Low bone mass (T-score between -1.0 and -2.5) replaces thepreviously used term osteopenia Osteoporosis (T-score = or below -2.5) Medical evaluation for secondary causes of low bone mineral density may be appropriate. FRAX is a World Health Organization validated fracture risk assessmenttool that calculates a person's 10 year probability of a major osteoporosisrelated fracture and hip fracture. According to the National OsteoporosisFoundation guidelines, postmenopausal women and men age 50 or older with low bonemass and a 10 year probability of a major osteoporosis related fracture = or greater than 20% or a 10 year probability of a hip fracture = or greaterthan 3% should be considered for treatment. For further information, including treatment recommendations, please referto the 2013 ISCD Official Positions (http://www.iscd.org) and the NOF's Clinician's Guide to Prevention and Treatment of Osteoporosis (http://www.nof.org/professionals/clinical-guidelines) THIS IS AN ELECTRONICALLY VERIFIED FINAL REPORT 03/24/2022 9:55 PM - Electronically signed by Kristofer Smiht M.D. 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 MPH Christiano Tian MD LAB MICROBIOLOGY - GENERAL ORDERABLES Final Result [facility] Francois * COLONOSCOPY IMAGES (05/06/2015) Anatomical Region Laterality Modality Other Narrative 05/06/2015 Ordered by an unspecified provider. Historical Provider GI PROCEDURE ORDERABLES F inal Result from Last 3 Months or Most Recently Relevant to Health Maintenance Insurance [employer] MED[employer]ARE HMO PPO [employer] MED[employer]ARE HMO PPO [employer] HMO PPO Advance Directives For more information, please contact: [phone] * Full Code (Latest Code Status on File) Date Activated Date Inactivated Comments 03/31/2023 3:48 AM 04/04/2023 6:54 PM * LIMITED - No CPR Date Activated Date Inactivated Comments 12/01/2018 3:07 AM 12/07/2018 11:05 PM Question Answer Comments Provide aggressive medical m anagement before a full cardiopulmonary arrest occurs. Use antibiotics, IV Fluids, and medical treatment unless specifically selected below: No intubation Healthcare Agents on File Name Relationship Healthcare Agent [facility] Communication Kim Willis Daughter First Alternate Health Care Agent Care Teams Sole Cementer Relationship Specialty Start Date End Date Ammy Trejo MD [address] [place] [address] [address] PCP - General Family Medicine 08/03/23 Vanessa Mcclain, RN Registered Nurse 05/23/18 Jigar Medina, PT Physical Therapist Physical Therapy 01/01/22 Jw Degroot MD [address] [facility], [address] [place] [address] Consulting Physician Cardiology 08/03/23 [place] [address] [place] [address] Consulting Physician Pulmonary Disease 08/03/23
--- OUTSIDE RECORDS SUMMARY | 2025-04-22 10:24 | XMS_ITS | Encounter Summary ---
Author Organization [facility] Healthcare Address [address] [place] [address] Care Team Providers Care Alumni Relations Coordinator Name Role Phone Vanessa Mcclain RN Unavailable UnavailCici Schneider NP Primary Care Provider [phone] Jigar Medina PT Unavailable Unavailab Jw Garay MD Unavailable Kristofer Fairbanks MD Unavailable [phone] Ammy Trejo MD Primary Care Provide r Encounter Details Date Type Department Care Team (Late st Contact Info) Description 03/23/2022 Telephone [facility] [address] [place] [address] Liz Bergman, RT Social History Tobacco Use Types Packs/Day Years Used Date Smoking Tobacco: Never Smokeless Tobacco: Never Alcohol Use Standard Drinks/Week Comments No 0 (1 standard drink = 0.6 oz pur e alcohol) PHQ-2 Answer Date Recorded PHQ-2 Total Score (If total score is 3 or more points, staff should administer the PHQ-9) 0 01/04/2022 Comments No Sex and Gender Information Value Date Recorded Sex Assigned at Not on file Legal Sex Female 4:04 PM INSIDE METER TESTER Gender Identity Not on file Sexual Orientation Not on file documented as of this encounter Plan of Treatment Not on file documented as of this encounter Goals Goal Patient Goal Type Associated Problems Recent Progress Patient-Stated? Author BH-Pain Behavioral Health Worsening(05/2019 2:12 PM INSIDE METER TESTER) No Vanessa Mcclain, RN Note: Pt would like to be able to complete ADLs and walk with minimal pain. documented as of this encounter Visit Diagnoses Not on filedocumented in this encounter Care Teams Alumni Relations Coordinator Relationship Specialty Start Date End Date Cici Tracy NP PCP - General 12/01/18 08/02/23 Ammy Trejo MD [address] [address] PCP - General Family Medicine 08/03/23 Vanessa Mcclain, RN Registered Nurse 05/23/18 Jigar Medina, PT Physical Therapist Physical Therapy 01/01/22 Jw Degroot MD [address] [facility] [address], [address] [place] [address] Consulting Physician Cardiology 08/03/23 [place] [address] [address] [facility] [address] [place] [address] Consulting Physician Pulmonary Disease 08/03/23 documented as of this encounter
--- OUTSIDE RECORDS SUMMARY | 2025-04-22 10:24 | XMS_ITS | Continuity of Care Document ---
Author Organization [facility] Address [address] [facility] [address] [place] [address] Phone Care Team Providers Care Drywall Sprayer Name Role Phone Main VELÁZQUEZ, Katheryn Unavailable Unavailable Allergies, Adverse Reactions, Alerts Substance Reaction Status Criticality Sulfa (Sulfonamide Antibiotics) Active No Information Medications Medication Instructions Dosage Effective Dates (start - stop) Status Comments ketorolac 0.5 % eye drops instill 1 drop in the operated eye 3 times a day for 1 month; to begin after being seen in the office for first post op visit. - Active prednisolone acetate 1 % eye drops,suspension Instill 1 drop into operated eye 4 times a day for 2 weeks, then 2 times a day for 2 weeks; to begin after being seen in the office for first post op visit. - Active polymyxin B sulfate 10,000 unit-trimethoprim 1 mg/mL eye drops instill 1 drop by ophthalmic route in the operated eye 4 times a day for 1 week; to begin after being seen in the office for first post op visit. - Active Ambien 5 mg tablet take 1 tablet by ora l route every day at bedtime 5 MG - Active amlodipine 5 mg tablet take 1 tablet by oral route every day 5 MG - Active aspirin 81 mg tablet,delayed release take 1 tablet by oral route every day 81 MG - Active diclofenac sodium 75 mg tablet,delayed release take 1 tablet by oral route 2 times every day 75 MG - Active fluticasone 500 mcg-salmeterol 50 mcg/dose blistr powdr for inhalation inhale 1 puff by inhalation route 2 times every day in the morning and evening approximately 12 hours apart 1.00 puff - Active furosemide 40 mg tablet take 3 tablet by oral route every day 120 MG - Active gabapentin 300 mg capsule take 1 capsule by oral route 3 times every day 300 MG - Active levothyroxine 175 mcg capsule take 1 capsule by oral route every day 175 MCG - Active losartan 100 mg tablet take 1 tablet by oral route every day 100 MG - Active rosuvastatin 10 mg tablet take 1 tablet by oral route every day 10 MG - Active sertraline 50 mg tablet take 1 tablet by oral route every day 50 MG - Active Novolog Flexpen U-100 Insulin aspart 100 unit/mL (3 mL) subcutaneous inject by subcutaneous route per prescriber's instructions. Insulin dosing requires individualization. 0.00 - Active Levemir U-100 Insulin 100 unit/mL subcutaneous solution inject by subcutaneous route per prescriber's instructions. Insulin dosing requires individualization. - Active Procedures Procedure Date No Charge Optomap Fundus Photos 023 No Charge Refraction SCODI, Retina IOLMaster-Technical Office/outpatient Visit, Est No Charge Orbscan Fundus Photography W/ Report No Charge Refraction Office/outpatient Visit, Est Fundus Photography W/ Report No Charge Refraction Eye Exam & Treatment Fundus Photography W/ Report Eye Exam & Treatment Fundus Photography W/ Report Eye Exam, New Patient Advance Directives Directive Yes / No Effective Date File Name No Information Encounters Encounter Description Practice Location Reason(s) For Visit Diagnoses Date Provider Providers Copied on Encounter [facility], [address] [facility] [address], [place], [place], [address], [place] tel:[phone] SEC Donnell LANDEROS Professional No Information 4 Main OD Katheryn. [address] [facility] [address], [address], [place], [place], [address], [place]. tel:[phone] [facility], [address] [place] [address] [address], [place], [place], [address], [place] tel:[phone] SEC [place] No Information 4 Jose Juan Bangura. [address] [place] [address] [facility], [address], [place], [place], [address], [place]. tel:[phone] Office/outpa tient Visit, [facility], [address] [place] [address] [address], [place], [place], [id number], [place] tel:[phone] SEC [facility] Professional Cataract evaluation (chief complaint) Age-related nuclear cataract, bilateralLatt ice degeneration of both retinasType 2 diabetes mellitus without complications Dec- 3 Jose Juan Bangura. [address] [place] [address] [facility], [address], [place], [place], [address], [place]. tel:[phone] Specialist : Kim Maxwell NP, [address] [facility] [address], [address], [place], [address]. tel:[phone] erring Provider: Messi Etienne, [address] [facility] [address], [place], [address] . tel:[phone] Office/outpa tient Visit, [facility], [address] [place], [place] [address], [place], [place], [address], [place] tel:[phone] SEC [facility] Professional Follow up visit (chief complaint) Facial eczemaType 2 diabetes mellitus without complications Vitreous degeneration, bilateralAge- related nuclear cataract, bilateralSeni le reticular retinal degeneration of both eyes Oct-1 3 Dionne OD Nova. [address] [place] [address] [facility], [address], [place], [place], [address], [place]. tel:[phone] Kim Maxwell NP.Referri ng Provider: Messi Etienne, [address] [facility] [address], [place], [address] . tel:[phone] [facility], [address] [place] [address] [address], [place], [place], [address], [place] tel:[phone] SEC [facility] Professional Diabetic eye exam (chief complaint) Type 2 diabetes mellitus without complications Age-related nuclear cataract, bilateralLatt ice degeneration of both retinas 3 Cliff Swenson. [address] [facility], [address], [place], [place], [address], [place]. tel:[phone] Specialist : Kim Maxwell NP, [address] [facility] [address], [address], [place], [address]. tel:[phone] cialist: Kim Maxwell NP, [address] [facility] [address], [address], [place], [address]. tel:[phone] erring Provider: Messi Etienne, [address] [facility] [address], [place], [address] . tel:[phone] [facility], [address], [place], [place], [address], [place] tel:[phone] SEC [facility] Professional Complete Exam (chief complaint) Age-related nuclear cataract, bilateralType 2 diabetes mellitus without complications Lattice degeneration of both retinas 2 Cliff Swenson. [address] [facility], [address], [place], [place], [address], [place]. tel:[phone] Specialist : Kim Maxwell NP, [address] [facility]. [address], [place], [address]. tel:[phone] erring Provider: Messi Etienne, [address] [facility] [address], [place], [address] . tel:[phone] [facility], [address], [place], [place], [address], [place] tel:[phone] SEC [facility] Professional diabetic eye exam (chief complaint) Age-related nuclear cataract, bilateralType 2 diabetes mellitus without complications Vitreous degeneration, bilateralLatt ice degeneration of both retinas 1 Cliff Swenson. [address] [facility], [address], [place], [place], [address], [place]. tel:[phone] Specialist : Ale French MD, [address] [facility] [address], [place], [address]. tel:[phone] erring Provider: Messi Etienne, [address] [facility] [address], [place], [address] . tel:[phone] Family History Family Member Type Diagnosis Age At Onset Problem Family history of Diabetes ronald dozier Payers Payer name Insurance type Covered republican ID Authoriza tijimena(s) [facility] [id number] Social History Type Description Quantity Date Captured Comments Alcohol Use Details Unknown Caffeine Use Details Unknown Tobacco Use Status No Information Smoking Status No Information Sex Female Chief Complaint And Reason For Visit No Information Reason For Referral Reason For Referral No Information Plan Of Treatment Date Type Action Status Patient Education Cataracts: Care Instruc tions completed Patient Education Cataracts: Care Instruc tions completed Patient Education Cataracts: Care Instruc tions completed History Of Present Illness Encounter Date Complaint History Of Prese nt Illness Cataract evaluation The 72 year old patient presents for evaluation of Cataract evaluation in the right eye and left eye. Patient is IDDM II and followed by Dr. Burks, last A1C 7.1%. Patient states sometimes had a hard time seeing really small print on the newspaper. Pt struggles with glare on bright days and typically avoids driving at night. Pt notices sometimes when walking down the stairs, there's a cloudy spot in her vision that is bothersome. Denies pain/discomfort. Pt uses OTC ATs PRN. Follow up visit The 72 year old patient presents for an office visit. Patient c/o blurry vision OS and is red underneath her left eye and patient uses an antibiotic cream. Patient is a Type II diabetic and last A1C was 7.1 Diabetic eye exam The 72 year ol d patient presents for evaluation of Diabetic eye exam in the right eye and left eye. Patient states she see a light haze that crosses over her VA at times. Patient states it doesn't last long. Patient is a Diab, BS checked this am @ 129, a1c 7.0, and Dr. Maxwell treats her diab. Complete Exam The 71 year old patient presents for evaluation of Complete Exam in the right eye and left eye. Hx of CAT OU, PVD OU, and Lattice OU. Pt is IDDM II x 16 yrs, followed by Dr. Kim Maxwell, pt reports BS was 135 this am and she is unsure of A1C but it was good about 2 mos ago. Pt reports stable VA, OU, DV and NV, since last appt. Pt reports she uses AFT QHS OU. diabetic eye exam The 70 year ol d female presents for a Complete Type II diabetic exam ou. Patient has been a diabetic x [address] French for DM. BS was 120 this am. Patient wears OTC reading glasses. Patient states her eyes are doing good. Functional Status Date Functional Assessmen t No Information Instructions Date Instruction Additional Infor ivania Impression/Plan Impression/Plan Impression/Plan Impression/Plan Impression/Plan Assessments Type Assessment Date No Information Patient Care Teams Name Effective Dates (start - stop) Status Members No Information
--- OUTSIDE RECORDS SUMMARY | 2025-04-22 10:33 | XMS_ITS | Continuity of Care Document ---
Author Organization Home Inventory S[facility] [place] [address] [place] [address] Phone Care Team Providers Care Plier Worker Name Role Phone Main VELÁZQUEZ, Katheryn Unavailable [...] Diagnoses Date Provider Providers Copied on Encounter [facility], [address], [place], [place], [id number], [place] tel:[phone] SEC Donnell LANDEROS Professional No Information 4 Main OD Katheryn. [address], [address], [place], [place], [address], [place]. tel:[phone] [facility], [address] [place] [address] [address], [place], [place], [address], [place] tel:[phone] SEC [place] No Information 4 Jose Juan Bangura. [address] [place] [address] [facility], [address], [place], [place], [address], [place]. tel:[phone] Office/outpa tient Visit, [facility], [address] [place] [address] [address], [place], [place], [address], [place] tel:[phone] SEC [facility] Professional Cataract evaluation (chief complaint) Age-related nuclear cataract, bilateralLatt ice degeneration of both retinasType 2 diabetes mellitus without complications Dec- 3 Jose Juan Bangura. [address] [place] [address] [facility], [address], [place], [place], [address], [place]. tel:[phone] Specialist : Kim Maxwell NP, [address], [address], [place], [address]. tel:[phone] erring Provider: Messi Etienne, [address], [place], [address] . tel:[phone] Office/outpa tient Visit, [facility], [address] [place], [place] [address], [place], [place], [address], [place] tel:[phone] SEC [facility] Professional Follow up visit (chief complaint) Facial eczemaType 2 diabetes mellitus without complications Vitreous degeneration, bilateralAge- related nuclear cataract, bilateralSeni le reticular retinal degeneration of both eyes Oct-1 3 Dionne OD Nova. [address] [place] [address] [facility], [address], [place], [place], [address], [place]. tel:[phone] Kim Maxwell NP.Referri ng Provider: Messi Etienne, [address], [place], [address] . tel:[phone] [facility], [address] [place] [address] [address], [place], [place], [address], [place] tel:[phone] SEC [facility] Professional Diabetic eye exam (chief complaint) Type 2 diabetes mellitus without complications Age-related nuclear cataract, bilateralLatt ice degeneration of both retinas 3 Cliff Swenson. [address] [facility], [address], [place], [place], [address], [place]. tel:[phone] Specialist : Kim Maxwell NP, [address] [facility] [address], [place], [address]. tel:[phone] cialist: Kim Maxwell NP, [address] [facility] [address], [place], [address]. tel:[phone] erring Provider: Messi Etienne, [address] [facility] [address], [place], [address] . tel:[phone] [facility], [address], [place], [place], [address], [place] tel:[phone] SEC [facility] Professional Complete Exam (chief complaint) Age-related nuclear cataract, bilateralType 2 diabetes mellitus without complications Lattice degeneration of both retinas 2 Cliff Swenson. [address] [facility], [address], [place], [place], [address], [place]. tel:[phone] Specialist : Kim Maxwell NP, [address] [facility]. [address], [place], [address]. tel:[phone] erring Provider: Messi Etienne, [address] [address], [place], [address] . tel:[phone] [facility], [address], [place], [place], [address], [place] tel:[phone] SEC [facility] Professional diabetic eye exam (chief complaint) Age-related nuclear cataract, bilateralType 2 diabetes mellitus without complications Vitreous degeneration, bilateralLatt ice degeneration of both retinas 1 Cliff Swenson. [address] [facility], [address], [place], [place], [address], [place]. tel:[phone] Specialist : Ale French MD, [address] [facility] [address], [place], [address]. tel:[phone] erring Provider: Messi Etienne, [address] [facility] [address], [place], [address] . tel:[phone] Family History Family Member Type Diagnosis Age At Onset Problem Family history of Diabetes ronald dozier Payers Payer name Insurance type Covered green party ID Authoriza tijimena(s) [facility] [id number] Social History Type Description Quantity Date Captured [...]
--- NOTE | 2025-04-22 10:55 | ED_ITS ---
HPI - Skin/Abscess/Foreign Bdy General Chief complaint: Skin/Abscess/Foreign Body Stated complaint: Skin Sore Time Seen by Provider: 04/22/25 10:40 Source: patient and RN notes reviewed Mode of arrival: ambulatory Limitations: no limitations History of Present Illness HPI narrative: 74-year-old female presents to the [facility] complaining wound to right groin region for approximately 2 days. Patient of this redness swelling, pain, and drainage to her right groin area. Patient reports foul-smelling drainage coming from the wound. Patient has a history of diabetes. Patient has been using rubbing alcohol with no relief. Patient says she has a history of abscess. Patient is a fevers, body aches, chills, nausea vomiting, or any other symptoms. Related Data Home Medications ?Medication ?Instructions ?Recorded ?Confirmed ?Last Taken ?Type amlodipine 5 mg tablet mg 04/22/25 Unknown History diclofenac sodium 75 mg mg PO 04/22/25 Unknown History tablet,delayed release gabapentin 300 mg capsule mg 04/22/25 Unknown History insulin lispro 100 unit/mL subcut 04/22/25 Unknown History subcutaneous pen levothyroxine 125 mcg tablet mcg 04/22/25 Unknown History losartan 100 mg tablet mg 04/22/25 Unknown History rosuvastatin 10 mg tablet mg 04/22/25 Unknown History tramadol 50 mg tablet mg 04/22/25 Unknown History zolpidem 5 mg tablet mg 04/22/25 Unknown History Allergies Allergy/AdvReac Type Severity Reaction Status Date / Time erythromycin base Allergy Mild Unverified 09/13/15 11:45 ibuprofen Allergy Mild Unverified 09/13/15 11:45 Sulfa (Sulfonamide Allergy Mild Unverified 09/13/15 11:45 Antibiotics) etodolac Allergy Unknown Verified 08/18/11 14:01 Review of Systems Review of Systems: CONSTITUTIONAL: Denies fever, chills, or sweats. EYES: Denies visual changes, redness, or discharge. ENT: Denies rhinorrhea, congestion, sore throat, or otalgia. CARDIOVASCULAR: Denies chest pain, palpitations, or edema. RESPIRATORY: Denies cough or dyspnea. GASTROINTESTINAL: Denies abdominal pain, nausea, vomiting, or diarrhea. GENITOURINARY: Denies dysuria or hematuria. SKIN: Denies rash or itching. Positive for wound. MUSCULOSKELETAL: Denies back pain, joint pain, or myalgia. NEUROLOGIC: Denies headache, numbness, or weakness. PSYCHIATRIC: Denies anxiety or depression. All other systems reviewed are negative, except as documented in HPI. [facility] Family History Family History Mother Family history of respiratory disorder Sibling Family history of heart disease in male family member before age 55 Social History Social History Smoking status: Never smoker Alcohol intake: never Comments At the time of my signature, I reviewed and agree with the nursing past medical, surgical, social, and family history. There is no relevant family history pertinent to the patient complaint. Exam Narrative: GENERAL: This is a well-nourished, well-developed adult, in no apparent distress. They are non ill-appearing, nontoxic appearing. HEAD: normocephalic, atraumatic. EYES: Sclera clear/white. Conjunctiva normal. Vision is grossly intact. E xtraocular movements intact EARS: External ears normal,Hearing grossly intact. NOSE: External nose normal. THROAT: Mucous membranes moist, NECK: Neck supple CARDIOVASCULAR: Regular rate and rhythm RESPIRATORY: Normal respiratory eggs SKIN: Erythematous Abscess present to right side the pelvis above the vulva. It measured approximately 3 cm x 2 cm. Will is actively draining. Purulent drainage present. Skin is indurated. Is tender to palpate. NEURO: awake, alert, and oriented to person, place and time. There were no obvious focal neurologic abnormalities. EXTREMITIES: No joint tenderness, effusion, or edema noted. Course Course Emergency Course: Portions of this record may have been created with voice recognition software Level of Care: Express Care Visit Vital Signs Vital signs: Vital Signs Temperature 98.4 F 04/22/25 09:54 Pulse Rate 84 04/22/25 09:54 Respiratory Rate 20 04/22/25 09:54 Blood Pressure 132/56 L 04/22/25 09:54 Pulse Oximetry 97 04/22/25 09:54 Oxygen Delivery Room Air 04/22/25 09:54 Temperature 98.4 F 04/22/25 09:54 Pulse Rate 84 04/22/25 09:54 Respiratory Rate 20 04/22/25 09:54 Blood Pressure 132/56 L 04/22/25 09:54 Pulse Oximetry 97 04/22/25 09:54 Oxygen Delivery Room Air 04/22/25 09:54 Reviewed MDM - Skin/Abscess/Foreign Bdy MDM Narrative Medical decision making narrative: Her is evidence abscess formation the patient's right pelvic/inguinal region. It is actively draining. No indication for incision and drainage since patient wound is actively draining. Wound culture obtained and pending. Given the purulence of the drainage will go ahead and cover for MRSA with doxycycline. Patient has allergies to sulfa and erythromycin. Wound is cleaned and dressed by nursing staff. Advised patient not use rubbing alcohol peroxide to the area. Discussed physical exam findings. Advised supportive measures and signs/symptoms to go to the ER. Pt is appropriate for outpt treatment and f/u. Differential Diagnosis Differential diagnosis: Likely abscess of skin or subcutaneous tissue, dermatophytosis and cellulitis Critical Care Time Critical Care Time Critical Care Time: No Discharge Plan Discharge Clinical Impression: Abscess Patient Disposition: Home Condition: Stable Instructions: Antibiotic Form, Abscess (ED) Additional Instructions: A wound culture was obtained and if it is resistant to antibiotic therapy will be contacted antibiotic will be changed to an appropriate antibiotic. DO NOT pick at the area. This will only make the area worse and drive infection deeper. Shower and wash with soapy water. Keep area clean and dry. Take all the antibiotics as prescribed. Please wear sunscreen for going to be outside while taking doxycycline. Make sure to keep a dressing in place especially while it is draining . Change dressing at least once daily or when visibly soiled Follow up with PCP in 3-5 Go to the ER if developed worsening redness, swelling or pain, fevers about his, chills, or any serious concerns. Patient Language: [place] Citizen Prescriptions: New doxycycline monohydrate 100 mg capsule 100 mg PO BID 7 Days Qty: 14 0RF No Action amlodipine 5 mg tablet tramadol 50 mg tablet levothyroxine 125 mcg tablet gabapentin 300 mg capsule diclofenac sodium 75 mg tablet,delayed release (DR/EC) PO zolpidem 5 mg tablet losartan 100 mg tablet insulin lispro 100 unit/mL insulin pen SUBCUT rosuvastatin 10 mg tablet Follow-up/Referrals: Neil,MD Ammy [Primary Care Provider] - Time of Disposition: 10:54
== END 2025-04-22 11:01 | disposition home or self-care (01) ==
PROVIDERS: PCP Family Medicine
DX: L02.214 Cutaneous abscess of groin (principal); E11.9 Type 2 diabetes mellitus without complications; Z79.4 Long term (current) use of insulin
CPT/HCPCS: 87070; 87075; 99203; G0463